=== PATIENT | female | born 1960 | race Caucasian/White ===

== ENCOUNTER 2016-05-18 17:18 | Emergency (ER) | payer BC, MEDICAID ==
[~2016-05-18] VITALS: Ht 162.6 cm; Wt 118.2 kg
[2016-05-18 17:23] VITALS: Ht 162.6 cm; Wt 118.2 kg
--- NOTE | 2016-05-18 17:33 | NUR ---
MAIRA BURKS IN
[2016-05-18] MEDS ORDERED: NORMAL SALINE 1,000 ML IV ONE (17:45)
[2016-05-18 17:58] LABS: BASOPHILS % (AUTO) 0.5 % (0-2); EOSINOPHILS # (AUTO) 0.3 T/MM3 (0-0.5); EOSINOPHILS % (AUTO) 3.1 % (0-4); HCT - HEMATOCRIT 41.1 % (36-46); HGB - HEMOGLOBIN 13.4 GM/DL (12-16); IMMATURE GRANULOCYTE # (AUTO) 0.02 T/MM3 (0.00-0.03); IMMATURE GRANULOCYTE % (AUTO) 0.2 % (0.0-0.5); LYMPHOCYTES # (AUTO) 3.2 T/MM3 (1-4.8); LYMPHOCYTES % (AUTO) 38.2 % (23-45); MEAN CORPUSCULAR HGB 26.9 UUG (26-34); MEAN CORPUSCULAR HGB CONC(MCHC 32.6 GM/DL (31-37); MEAN CORPUSCULAR VOLUME 82.5 UM3 (80-100); MONOCYTES # (AUTO) 0.8 T/MM3 (0-0.8); MONOCYTES % (AUTO) 9.2 % (0-9.0); NEUTROPHILS #(AUTO)-ABSOLUTE 4.1 T/MM3 (1.8-7.7); NEUTROPHILS % (AUTO) 48.8 % (33-66); RED BLOOD COUNT 4.98 M/MM3 (4.00-5.20); WBC - WHITE BLOOD COUNT 8.4 T/MM3 (4.5-11.0)
[2016-05-18 18:00] LABS: BLOOD, URINE TRACE-INTACT (NEGATIVE); COLOR,URINE YELLOW (YELLOW); LEUKOCYTE ESTERASE ,URINE 2+ (NEGATIVE); NITRITE,URINE POSITIVE (NEGATIVE); UROBILINOGEN,URINE 0.2 EU/DL (NORMAL)
[2016-05-18] MEDS ORDERED: [UNRECOGNIZED DRUG - CODE] PO (18:07)
[2016-05-18] MEDS ORDERED: METO25TA6 PO (18:07)
[2016-05-18] MEDS ORDERED: LETR2.5T PO (18:07)
[2016-05-18] MEDS ORDERED: CALC1TAB PEG (18:07)
[2016-05-18] MEDS ORDERED: SENN8.6T12 PO (18:07)
[2016-05-18] MEDS ORDERED: DULO30CA52 PO (18:07)
[2016-05-18] MEDS ORDERED: FLUT15.88 NS (18:07)
[2016-05-18] MEDS ORDERED: DICL100G5 TOP (18:07)
[2016-05-18] MEDS ORDERED: MONT10TA25 PO (18:07)
[2016-05-18] MEDS ORDERED: ALEN70TA48 PO (18:07)
[2016-05-18] MEDS ORDERED: GUAI-782 PO (18:07)
[2016-05-18] MEDS ORDERED: DOCU-175 PO (18:07)
[2016-05-18] MEDS ORDERED: GUAI400T65 PO (18:07)
[2016-05-18] MEDS ORDERED: HYDR50CA5 PO (18:07)
[2016-05-18] MEDS ORDERED: PRAM1TAB3 PO (18:07)
[2016-05-18] MEDS ORDERED: BUDE10.2 PO (18:07)
[2016-05-18] MEDS ORDERED: GLUC1TAB21 PO (18:07)
[2016-05-18] MEDS ORDERED: POTA-81 PO (18:07)
[2016-05-18] MEDS ORDERED: MAGN400T6 PO (18:07)
[2016-05-18] MEDS ORDERED: SITA50TA PO (18:07)
[2016-05-18] MEDS ORDERED: QUET25TA73 PO (18:07)
[2016-05-18] MEDS ORDERED: MELA5TAB14 PO (18:07)
[2016-05-18] MEDS ORDERED: SUCR1TAB PO (18:07)
[2016-05-18] MEDS ORDERED: ALBU8.5H INH (18:07)
[2016-05-18] MEDS ORDERED: GABA-338 PO ×2 (18:07)
[2016-05-18] MEDS ORDERED: BUSP10TA3 PO (18:07)
[2016-05-18] MEDS ORDERED: OMEP20CA10 PO (18:07)
[2016-05-18] MEDS ORDERED: TRAZ-173 PO (18:07)
[2016-05-18 18:09] LABS: ANION GAP 14 MEQ/L (5-15); BUN/CREATININE RATIO 26 RATIO (6-26); CALCIUM 9.7 MG/DL (8.4-10.2); CHLORIDE 110 MEQ/L (98-107); CO2 - CARBON DIOXIDE 27 MEQ/L (22-30); CREATININE 0.9 MG/DL (0.7-1.2); GLOMERULAR FILTRATION RATE 65; GLUCOSE 95 MG/DL (65-110); POTASSIUM 4.1 MEQ/L (3.6-5); SODIUM 151 MEQ/L (134-144)
[2016-05-18 18:11] LABS: SQUAMOUS EPITHELIAL CELL,UR 0-5
[2016-05-18 18:12] LABS: RBC,URINE NONE SEEN /HPF (0-3); WBC CLUMPS,URINE MODERATE
[2016-05-18 18:13] LABS: BACTERIA,URINE 2+ (NEGATIVE)
[2016-05-18] MEDS ORDERED: CEFTRIAXONE I.V. (ER USE ONLY) 1 G in NORMAL SALINE 100 ML IV ONE (18:15)
[2016-05-18] MEDS ORDERED: PHEN-778 PO (18:24)
[2016-05-18] MEDS ORDERED: CIPR-212 PO (18:24)
--- NOTE | 2016-05-18 18:24 | ERPDOC ---
Departure Disposition Decision Date: May 18, 2016 Disposition Decision Time: 18:21 Disposition: 01 DISCHARGED HOME, SELF-CARE Impression Impression Impression: Primary Impression: Urinary tract infection Urinary tract infection type: acute cystitis Hematuria presence: without hematuria Qualified Codes: N30.00 - Acute cystitis without hematuria Severity: Moderate Condition: Stable Seen By: Mid-level only Patient Instructions: Urinary Tract Infection in Women (ED) Problems/Meds/Labs Reviewed?: Yes Medications reviewed and manag: Yes Additional Instructions: Please take the Keflex as prescribed. I do want you to make sure that you are drinking plenty of fluids at home. May use the Pyridium as needed for bladder pain. If you are not improving at all then please follow up with your primary care provider or return to ER. Follow up care ordered?: Yes Mental Status: Alert, Oriented Scripts Cephalexin (Keflex) 500 Mg Capsule 1 CAP PO TID, #21 CAP 0 Refills Prov: JOVANNI COPELAND LEGAL INTERN 05/18/16 Phenazopyridine HCl (Pyridium) 100 Mg Tablet 95 MG PO TID Y for URINARY DISCOMFORT, #9 TAB 0 Refills Prov: JOVANNI COPELAND LEGAL INTERN 05/18/16 HPI - Female General Chief Complaint: Female Urogenital Problems Stated Complaint: POSSIBLE BLADDER INFECTION Time Seen by Provider: 17:22 Source: patient Exam Limitations: no limitations HPI - Female Initial Comments She has had some low abdominal pain and flank pain for the last 5 days. She thinks that she may have a UTI. Has had some dysuria and frequency. Denies any vomiting or fever. Went to her PCP today and they checked her urine. Does show a UTI but they were unsure if she had a pyelo so sent her to ER for evaluation. Occurred At: home Onset: Gradual Duration: other (Over the last 5 days) Severity/Quality: dullness Location: right flank, left flank Radiation: none Associated Symptoms: abdominal pain (low abdominal pain), dysuria, lower back pain, polyuria, urinary frequency, DENIES: diaphoresis, fever/chills, loss of bladder control, lumps, mass, nausea/vomiting, nocturia, swelling, syncope Hx of Similar Symptoms: No Hx Last Menstrual Period: MENOPAUSAL Allergies: Coded Allergies: Penicillins (Verified Allergy, Unknown, 05/18/16) ciprofloxacin (Verified Adverse Reaction, Unknown, STOMACH ACHE, 05/18/16) Review of Systems Constitutional Constitutional: DENIES: chills, dizziness, fatigue, fever, weakness Cardiovascular Cardiac: DENIES: chest pain, orthopnea Rhythm/Rate: DENIES: irregular beat, palpitations Pulmonary Respiratory: DENIES: cough, dyspnea, sputum, tachypnea GI Upper Abdomen: DENIES: nausea, pain, vomiting Lower Abdomen: pain, DENIES: constipation, diarrhea General: DENIES: dysuria, frequency, hematuria, urgency Integumentary Skin: DENIES: rash Neurological General: DENIES: headache, numbness, tingling, weakness Physical Exam General General Nourishment: well nourished, well developed, appears stated age, no acute distress, adult, obese General Body Habitus: well groomed Vitals and Pain First Documented Vital Signs Date Time Temp Pulse Resp B/P Pulse Ox O2 Delivery O2 Flow Rate FiO2 05/18/16 17:23 98.7 94 16 137/83 95 Room Air Weight: Kilograms: 118.200 Height (feet): 5 Height (inches): 4.00 Triage Pain Scale: RN VS reviewed by Provider: Yes Normal Exams: Neck: Full range of motion, without adenopathy, JVD, bruits or thyromegaly Chest/Resp: Clear all goins, with good airflow, and symmetry bilaterally CV: Regular rate and rhythm, without murmur or gallop, Pulses 2+ all extremities, capillary refill, <2 seconds all ext., no pedal edema noted Abdomen: Bowel sounds positive, soft, non-tender, non-distended, no hepatosplenomegaly, masses or bruits noted Lymphatic: No lymphadenopathy, or lymphedema noted Integumentary: No rashes, hives, or bruising noted Neurologic: Patient is alert, and oriented Psychiatric: Patient exhibits, appropriate attention, emotion and affect Abdomen (brief) Abdominal Brief: FOUND: other (No CVA tenderness on exam) Differential Diagnoses Considering: Pyelonephritis, Renal Colic, UTI Progress Results/Orders Orders Procedure Category Date Status Time Cbc W/Auto LAB 05/18/16 Complete Diff-Reflex Manual Bmp - Basic Metabolic LAB 05/18/16 Complete Panel Iv Lock (Ed Only) EDM 05/18/16 Transmitted 17:35 Normal Saline (Normal PHA 05/18/16 Complete Saline Iv) 17:45 UA, LAB 05/18/16 Complete Dip&Micro(Complete) & 17:48 Ceftriaxone I.V. (Er PHA 05/18/16 Complete Use Only) (Rocephin 18:15 Urine Culture VERONICA 05/18/16 In Process 18:13 Phenazopyridine Hcl PHA 05/18/16 Complete (Pyridium Eq.) 18:30 Lab Results Laboratory Tests Test 05/18/16 17:48 05/18/16 17:51 Urine Collection Type Cleancatch-midstream Urine Color Yellow Urine Turbidity Sl cloudy Urine pH 5.0 Urine Specific [place] <=1.005 Urine Protein Negative Urine Glucose (UA) Negative Urine Ketones Negative Urine Blood Trace-intact Urine Nitrite Positive Urine Bilirubin Negative Urine Urobilinogen 0.2EU/DL Urine Leukocyte Esterase 2+ Urine RBC None seen/HPF Urine WBC 5-10/HPF Urine WBC Clumps Moderate Urine Squamous Epithelial Cells 0-5 Urine Bacteria 2+ Urine Culture Indicated Cult reflexed &setup White Blood Count 8.4T/MM3 Red Blood Count 4.98M/MM3 Hemoglobin 13.4GM/DL Hematocrit 41.1% Mean Corpuscular Volume 82.5UM3 Mean Corpuscular Hemoglobin 26.9UUG Mean Corpuscular Hemoglobin Concent 32.6GM/DL RDW Standard Deviation 49.3FL Platelet Count 205T/MM3 Mean Platelet Volume 10.0UM3 Immature Granulocyte % (Auto) 0.2% Neutrophils (%) (Auto) 48.8% Lymphocytes (%) (Auto) 38.2% Monocytes (%) (Auto) 9.2% Eosinophils (%) (Auto) 3.1% Basophils (%) (Auto) 0.5% Absolute Immature Granulocyte (auto 0.02T/MM3 Absolute Neutrophils (auto) 4.1T/MM3 Absolute Lymphocytes (auto) 3.2T/MM3 Absolute Monocytes (auto) 0.8T/MM3 Absolute Eosinophils (auto) 0.3T/MM3 Absolute Basophils (auto) 0.0T/MM3 Turbidity < 20 Sodium Level 151MEQ/L Potassium Level 4.1MEQ/L Chloride Level 110MEQ/L Carbon Dioxide Level 27MEQ/L Anion Gap 14MEQ/L Blood Urea Nitrogen 23.0MG/DL Creatinine 0.9MG/DL Glomerular Filtration Rate Calc 65 BUN/Creatinine Ratio 26RATIO Glucose Level 95MG/DL Calculated Osmolality 294MOSM/KG Calcium Level 9.7MG/DL Icterus Index < 2 Chemistry Specimen Hemolysis < 15 Medications Current ED Medications Sodium Chloride 1,000 ml @ 500 mls/hr Q2H ONCE IV Last administered on 17:55; Start 05/18/16 at 17:45; Stop 05/18/16 at 19:44; Status DC Ceftriaxone Sodium/Sodium Chloride (Rocephin/NS) 100 ml @ 100 mls/hr O ONCE IV Last administered on 05/18/16 18:15; Start 05/18/16 at 18:15; Stop 05/18/16 at 19:14; Status DC Phenazopyridine HCl (Pyridium Eq.) 95 mg O ONCE PO Last administered on 18:38; Start 05/18/16 at 18:30; Stop 05/18/16 at 18:31; Status DC Progress Progress WBC is 8.4 without left shift. Na is 151. UA does show nitrite positive, LE-2+, WBC-5-10, WBC clumps-moderate, and Bacteria-2+. We did give 1 gram Rocephin IV here in ER as well as 1 liter of IVF. Will go ahead and send her home as she is not having any nausea/vomiting or leukocytosis. Will start on some Keflex today. Push fluids at home. F/U with PCP if not improving. JOVANNI COPELAND APRN May 18, 2016 18:24
[2016-05-18] MEDS ORDERED: PHENAZOPYRIDINE 95 MG TABLET PO ONE (18:30)
[2016-05-18] MEDS ORDERED: CEPH-583 PO (19:43)
[2016-05-18 19:45] VITALS: BP 130/79; PULSE 87; RESP 16; TEMP 98.7; O2SAT 95
== END 2016-05-18 19:45 | disposition home or self-care (01) ==
LOC: ED 17:18
DX: N30.00 Acute cystitis without hematuria (principal)
CPT/HCPCS: 80048; 81001; 85025; 87086; 96361; 96365; 99284; J0696; J7030; J7050

== ENCOUNTER 2016-05-21 05:54 | Emergency (ER) | payer BC, MEDICAID ==
[~2016-05-21] VITALS: Ht 162.6 cm; Wt 119.1 kg
[~2016-05-21 05:54] MED LIST: ALBU8.5H INH; ALEN70TA48 PO; BUDE10.2 PO; BUSP10TA3 PO; CALC1TAB PEG; CEPH-583 PO; DICL100G5 TOP; DOCU-175 PO; DULO30CA52 PO; FLUT15.88 NS; GABA-338 PO; GLUC1TAB21 PO; GUAI-782 PO; GUAI400T65 PO; HYDR50CA5 PO; LETR2.5T PO; MAGN400T6 PO; MELA5TAB14 PO; METO25TA6 PO; MONT10TA25 PO; OMEP20CA10 PO; PHEN-778 PO; POTA-81 PO; PRAM1TAB3 PO; QUET25TA73 PO; SENN8.6T12 PO; SITA50TA PO; SUCR1TAB PO; TRAZ-173 PO; [UNRECOGNIZED DRUG - CODE] PO
--- OUTSIDE RECORDS SUMMARY | 2016-05-21 05:58 | XMS REPORT | Continuity of Care Document ---
Author Author [facility] Organization [facility] Address Unknown Phone Unavailable Care Team Providers Care Tableman Name Role Phone Ilya Felix Primary Care Physician [phone] Source Comments Some departments are not documenting in the electronic medical record. If you do not see the information that you expected, contact Release of Information in the Health Information Management department at [phone] for further assistance in locating additional records.[facility] Active Allergies and Adverse Reactions Allergen Noted Date Severity Reactions Comments Amoxicillin 10/17/2015 Low UNKNOWN Augmentin 07/22/2008 UNKNOWN Haldol 07/22/2008 SEE COMMENTS "causes jaw to lock" Latuda 12/23/2015 Low ANXIETY [place] Carbonate 10/17/2015 Low UNKNOWN Penicillins 12/03/2015 Low UNKNOWN Seroquel 10/17/2015 Low UNKNOWN Current Medications Prescription Sig. Disp. Refills Start End Date Status Date potassium chloride SR Take 1 Tab by mouth three Active (K-DUR) 20 mEq tablet times daily. trazodone (DESYREL) 100 Take 250 mg by mouth at Active mg tablet bedtime daily. montelukast (SINGULAIR) Take 10 mg by mouth Active 10 mg tablet daily. letrozole (FEMARA) 2.5 mg Take 2.5 mg by mouth Active tablet daily. melatonin 10 mg cap Take 1 Cap by mouth at Active bedtime daily. Mometasone-Formoterol Inhale 2 Puffs by mouth Active 100-5 mcg/actuation HFAA into the lungs twice daily. albuterol (VENTOLIN HFA, Inhale 2 Puffs by mouth Active PROAIR HFA, PROVENTIL into the lungs every 4 HFA) 90 mcg/actuation hours as needed for inhaler Wheezing or Shortness of Breath. Shake well before use. erythromycin (E-MYCIN) Take 250 mg by mouth four Active 250 mg tablet times daily. fluticasone (FLONASE) 50 Apply 2 Sprays to each Active mcg/actuation nasal spray nostril as directed at bedtime daily. Shake bottle gently before using. sodium chloride (SALINE Apply 2 Sprays to each Active NASAL) 0.65 % nasal spray nostril as directed twice daily as needed. vitamins, B complex tab Take 1 Tab by mouth Active daily. Calcium-Cholecalciferol Take 1 Tab by mouth Active (D3) (CALCIUM WITH daily. VITAMIN D) 600 mg(1,500mg) -400 unit tab docusate (COLACE) 100 mg Take 100 mg by mouth Active capsule twice daily. promethazine (PHENERGAN) Take 25 mg by mouth every Active 25 mg tablet 6 hours as needed for Nausea. inulin-sorbitol (FIBER Chew 1 Each by mouth Active CHOICE (INULIN-SORBITOL)) daily. 1.5 gram chew gabapentin (NEURONTIN) Take 1 (300mg) capsule by Active 300 mg capsule mouth twice a day and 4 (1200mg) capsules at bedtime. hydrOXYzine (ATARAX) 25 Take 25-50 mg by mouth Active mg tablet daily. sucralfate (CARAFATE) 1 Take 1 g by mouth three Active gram tablet times daily with meals. Take on an empty stomach. omeprazole DR(+) Take 20 mg by mouth Active (PRILOSEC) 20 mg capsule daily. hydrOXYzine (ATARAX) 50 Take 50 mg by mouth three Active mg tablet times daily as needed for Itching. alum/mag hydroxide/simeth Take 30 mL by mouth every Active (MYLANTA, MAALOX PLUS) 4 hours as needed. 200/200/20 mg/5 mL susp oral suspension magnesium hydroxide (MILK Take 30 mL by mouth every Active OF MAGNESIA) 400 mg/5 mL 12 hours as needed. oral suspension ibuprofen (ADVIL) 200 mg Take 200-400 mg by mouth Active tablet as Needed for Pain. Take with food. polyethylene glycol 3350 Take 17 g by mouth twice Active (GLYCOLAX; MIRALAX) 17 daily as needed for gram/dose powder Constipation. diclofenac(+) (VOLTAREN) Apply topically to Active 1 % topical gel affected area twice daily as needed. Apply a "thin film" metoprolol tartrate Take 12.5 mg by mouth Active (LOPRESSOR) 25 mg tablet daily. dextromethorphan/guaiFENe Take 10 mL by mouth every Active sin (ROBITUSSIN-DM) 4 hours as needed. 10/100 mg/5 mL syrp oral syrup guaiFENesin LA (MUCINEX) Take 600 mg by mouth Active 600 mg tablet twice daily as needed. duloxetine DR (CYMBALTA) Take 30 mg by mouth Active 30 mg capsule daily. lurasidone 40 mg tab Take 1.5 Tabs by mouth Active daily. busPIRone (BUSPAR) 10 mg Take 10 mg by mouth twice Active tablet daily. buPROPion XL (WELLBUTRIN Take 150 mg by mouth Active XL) 150 mg tablet every morning. Do not crush or chew. acetaminophen (TYLENOL) Take 2 Tabs by mouth 0 12/05/19 Active 325 mg tablet every 4 hours as needed 16 for Pain. heparin (porcine) PF Inject 0.5 mL under the 12/05/19 Active 5,000units/0.5mL skin every 8 hours. June 29 injection syringe discontinue once mobilizing well senna/docusate Take 1 Tab by mouth twice 0 12/05/19 Active (SENOKOT-S) 8.6/50 mg daily. Take while taking 16 tablet pain medication HYDROcodone/acetaminophen Take 1-2 Tabs by mouth 75 Tab 0 12/05/19 Active (NORCO) 5-325 mg tablet every 4 hours as needed 16 for Pain Active Problems Problem Noted Date Lumbar stenosis 12/03/2015 Spinal stenosis 08/02/2008 Most Recent Encounters Date Type Specialty Providers Description 04/13/2016 Office Visit Neurosurgery Milan Perez MD Lumbar stenosis (Primary Dx) 04/07/2016 Telephone Neurosurgery Milan Perez MD Referral - physical therapy 03/09/2016 Telephone Neurosurgery Milan Perez MD Referral 03/09/2016 Orders Only Neurosurgery Milan Perez MD Social History Tobacco Use Types Packs/Day Years Used Date Never Smoker Smokeless Tobacco: Never Used Alcohol Use Drinks/Week oz/Week Comments No Last Filed Vital Signs Vital Sign Reading Time Taken Blood Pressure 180/85 04/13/2016 1:43 PM [employer] SU[employer] WORKER Pulse 101 04/13/2016 1:43 PM [employer] SUPPORT WORKER Temperature 36.9 C (98.5 F) 12/23/2015 1:05 PM [employer] SUPPORT WORKER Respiratory Rate 20 04/13/2016 1:43 PM [employer] SUPPORT WORKER Height 1.626 m (5' 4") 04/13/2016 1:43 PM [employer]U SUPPORT WORKER Weight 121.11 kg (267 lb) 04/13/2016 1:43 PM [employer] SUPPORT WORKER Body Mass Index 45.81 04/13/2016 1:43 PM [employer] SU[employer] WORKER Oxygen Saturation 94% 04/13/2016 1:43 PM [employer] SUPPORT WORKER Plan of Care Health Maintenance Due Date Last Done Comments Hepatitis C Screening 1960 Physical (Comprehensive) 1965 Exam Pertussis Vaccine 1969 Tetanus Vaccine 08/16/1975 Cervical Cancer Screening 08/16/1979 Breast Cancer Screening 1998 Colorectal Cancer 2008 Screening Influenza Vaccine 10/15/2016 Results from Last 3 Months Not on file
[2016-05-21 06:02] VITALS: Ht 162.6 cm; Wt 119.1 kg
--- OUTSIDE RECORDS SUMMARY | 2016-05-21 06:19 | XMS REPORT | Continuity of Care Document ---
Author Author [facility] Organization [facility] Address Unknown Phone Unavailable Care Team Providers Care Cleaning Manager Name Role Phone Ilya Felix Primary Care Physician [phone] Source Comments Some departments are not documenting in the electronic medical record. 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 Pulse 101 04/13/2016 1:43 PM RETAIL TRAINING MANAGER Temperature 36.9 C (98.5 F) 12/23/2015 1:05 PM RETAIL TRAINING MANAGER Respiratory Rate 20 04/13/2016 1:43 PM RETAIL TRAINING MANAGER Height 1.626 m (5' 4") 04/13/2016 1:43 PM RETAIL TRAINING MANAGER Weight 121.11 kg (267 lb) 04/13/2016 1:43 PM RETAIL TRAINING MANAGER Body Mass Index 45.81 04/13/2016 1:43 PM RETAIL TRAINING MANAGER Oxygen Saturation 94% 04/13/2016 1:43 PM RETAIL TRAINING MANAGER Plan of Care Health Maintenance Due Date Last Done Comments Hepatitis C Screening 1960 Physical (Comprehensive) 1965 Exam Pertussis Vaccine 1969 Tetanus Vaccine 08/16/1975 Cervical Cancer Screening 08/16/1979 Breast Cancer Screening 1998 Colorectal Cancer 2008 Screening Influenza Vaccine 10/15/2016 Results from Last 3 Months Not on file
--- NOTE | 2016-05-21 06:28 | NUR ---
EKG EKG TAKEN AND GIVEN TO DR VILLAVICENCIO
[2016-05-21 06:42] LABS: BASOPHILS % (AUTO) 0.8 % (0-2); EOSINOPHILS # (AUTO) 0.2 T/MM3 (0-0.5); EOSINOPHILS % (AUTO) 3.9 % (0-4); HCT - HEMATOCRIT 40.7 % (36-46); HGB - HEMOGLOBIN 13.2 GM/DL (12-16); IMMATURE GRANULOCYTE # (AUTO) 0.01 T/MM3 (0.00-0.03); IMMATURE GRANULOCYTE % (AUTO) 0.2 % (0.0-0.5); LYMPHOCYTES # (AUTO) 1.9 T/MM3 (1-4.8); LYMPHOCYTES % (AUTO) 36.3 % (23-45); MEAN CORPUSCULAR HGB 26.8 UUG (26-34); MEAN CORPUSCULAR HGB CONC(MCHC 32.4 GM/DL (31-37); MEAN CORPUSCULAR VOLUME 82.7 UM3 (80-100); MEAN PLATELET VOLUME 9.4 UM3 (9.4-12.4); MONOCYTES # (AUTO) 0.6 T/MM3 (0-0.8); MONOCYTES % (AUTO) 11.1 % (0-9.0); NEUTROPHILS #(AUTO)-ABSOLUTE 2.4 T/MM3 (1.8-7.7); NEUTROPHILS % (AUTO) 47.7 % (33-66); RED BLOOD COUNT 4.92 M/MM3 (4.00-5.20); WBC - WHITE BLOOD COUNT 5.1 T/MM3 (4.5-11.0)
[2016-05-21 06:50] LABS: ALBUMIN 3.9 G/DL (3.5-5.0); ALBUMIN/GLOBULIN RATIO 1.1 RATIO (1.1-2.2); ALKALINE PHOSPHATASE 92 U/L (38-126); ALT (SGPT) 42 U/L (9-52); ANION GAP 11 MEQ/L (5-15); AST (SGOT) 25 U/L (14-36); BUN/CREATININE RATIO 17 RATIO (6-26); CALCIUM 9.7 MG/DL (8.4-10.2); CHLORIDE 110 MEQ/L (98-107); CO2 - CARBON DIOXIDE 28 MEQ/L (22-30); CREATININE 0.9 MG/DL (0.7-1.2); GLOMERULAR FILTRATION RATE 65; GLUCOSE 104 MG/DL (65-110); LIPASE 254 U/L (23-300); POTASSIUM 3.7 MEQ/L (3.6-5); SODIUM 149 MEQ/L (134-144); TOTAL PROTEIN 7.4 G/DL (6.3-8.2)
[2016-05-21 06:57] LABS: BLOOD, URINE NEGATIVE (NEGATIVE); COLOR,URINE YELLOW (YELLOW); LEUKOCYTE ESTERASE ,URINE NEGATIVE (NEGATIVE); NITRITE,URINE NEGATIVE (NEGATIVE); UROBILINOGEN,URINE 0.2 EU/DL (NORMAL)
--- NOTE | 2016-05-21 07:01 | NUR ---
RADIOLOGY PT TO RADIOLOGY PER CART
--- NOTE | 2016-05-21 07:09 | ERPDOC ---
Departure Disposition Decision Date: May 21, 2016 Disposition Decision Time: 07:51 Disposition: 01 DISCHARGED HOME, SELF-CARE Impression Impression Impression: Primary Impression: UTI (urinary tract infection) Urinary tract infection type: acute cystitis Hematuria presence: without hematuria Qualified Codes: N30.00 - Acute cystitis without hematuria Additional Impression: Rib fracture Encounter type: initial encounter Rib fracture type: single rib Fracture type: closed Laterality: left Qualified Codes: S22.32XA - Fracture of one rib, left side, initial encounter for closed fracture Severity: Mild Condition: Improved Seen By: Physician only Referrals: BOBBI DOW MD (Family) 2 Days Patient Instructions: Urinary Tract Infection in Women (ED) Problems/Meds/Labs Reviewed?: Yes Medications reviewed and manag: Yes Follow up care ordered?: Yes Mental Status: Alert, Oriented HPI - General Medical General Chief Complaint: Female Urogenital Problems Stated Complaint: BLOOD IN URINE Time Seen by Provider: 06:11 Source: patient Exam Limitations: no limitations HPI - General Medical Initial Comments 55-year-old female presents to the emergency department with a chief complaint of a urinary tract infection. Patient was started originally on Keflex in the emergency department after being seen and evaluated on Tuesday. Yesterday they the patient was changed from Keflex to Macrobid by her primary care physician after the urine culture returned. Patient has had one full day of Macrobid therapy. Patient still notes some mild residual discomfort in the left flank region. Patient denies any other complaints or associated symptoms. She notes that her symptoms are improving with the Macrobid. She was at home when she noted onset of symptoms. No other complaints or associated symptoms. Patient states that her symptoms have been persistent in nature since onset with some improvement. No other complaints such as chest pain, shortness of breath, vomiting or diarrhea. Occurred At: home Onset: Gradual Allergies: Coded Allergies: Penicillins (Verified Allergy, Unknown, 05/21/16) ciprofloxacin (Verified Adverse Reaction, Unknown, STOMACH ACHE, 05/21/16) Past History Patient Surgical History L Breast surgery, hysterectomy, bunion Past Medical History GI: GERD Female: renal insufficiency Psychological: depression Family History Family History: Negative Social History Smoking Status: Current every day smoker Substance Use Type: does not use Alcohol Intake: none Review of Systems Constitutional Constitutional: DENIES: chills, fever Eyes General: DENIES: erythema, exudate Lids/Accessories: DENIES: erythema, swelling Vision: DENIES: acuity, blurring ENMT Ears: DENIES: drainage, erythema Hearing: DENIES: hearing loss Balance: DENIES: ataxia, falling to one side Sinuses: DENIES: congestion, pain Nose: DENIES: nosebleeds, pain Mouth/Throat: DENIES: painful swallowing, sore throat Teeth: DENIES: pain Jaw: DENIES: pain Cardiovascular Cardiac: DENIES: chest pain, dyspnea on exertion Rhythm/Rate: DENIES: irregular beat, palpitations Vascular: DENIES: pedal edema, unilateral swelling Pulmonary Respiratory: DENIES: cough, dyspnea, pleuritic chest pain, sputum GI Upper Abdomen: DENIES: nausea, pain, vomiting Lower Abdomen: DENIES: diarrhea, pain General: dysuria, frequency Musculoskeletal General: DENIES: joint pain, tenderness Integumentary Skin: DENIES: itching, rash Neurological General: DENIES: headache, numbness, weakness Psychiatric Psychiatric: DENIES: emotional instability, suicidal ideation/attempt Endocrine Endocrine: DENIES: polydipsia, polyphagia Hematologic/Lymphatic Hematologic/Lymphatic: DENIES: frequent nosebleeds, lymphadenopathy Allergic/Immunological Allergic/Immunoligical: DENIES: allergic reactions, hives Physical Exam General General Nourishment: well nourished, well developed, appears stated age, no acute distress, adult General Body Habitus: well groomed Vitals and Pain First Documented Vital Signs Date Time Temp Pulse Resp B/P Pulse Ox O2 Delivery O2 Flow Rate FiO2 05/21/16 06:02 98.3 83 20 163/92 95 Room Air Weight: Kilograms: 119.100 Height (feet): 5 Height (inches): 4.00 Triage Pain Scale: RN VS reviewed by Provider: Yes Normal Exams: Head: Normocephalic w/o trauma Eyes: Pupils are PERRLA w/ EOMI, No scleral icterus, irritation, or foreign bodies noted ENMT: No facial trauma, nasal exudates, pharyngeal erythema, or exudates are noted Dental: No fractured, loose, or missing teeth noted Neck: Full range of motion, without adenopathy, JVD, bruits or thyromegaly Chest/Resp: Clear all goins, with good airflow, and symmetry bilaterally CV: Regular rate and rhythm, without murmur or gallop, Pulses 2+ all extremities, capillary refill, <2 seconds all ext., no pedal edema noted Abdomen: Bowel sounds positive, soft, non-tender, non-distended, no hepatosplenomegaly, masses or bruits noted Lymphatic: No lymphadenopathy, or lymphedema noted Musculoskeletal: No tenderness, or deformity noted, good range of motion, all extremities Integumentary: No rashes, hives, or bruising noted, hair and nails, without abnormality Neurologic: Patient is alert, and oriented, cranial nerves, motor/sensory/ cerebellar, exams w/o gross deficits, to observation Psychiatric: Patient exhibits, appropriate attention, emotion and affect Abdomen (brief) Comments NO CVAT. Differential Diagnoses Considering: Depression, Medication Effect, Metabolic, UTI Progress Results/Orders Orders Procedure Category Date Status Time Cbc W/Auto LAB 05/21/16 Complete Diff-Reflex Manual Cmp - Comprehensive LAB 05/21/16 Complete Metabolic Lipase LAB 05/21/16 Complete Ua, Dip Wreflex LAB 05/21/16 Complete Microsc & Molded Goods Controls Operator 06:20 EKG EKG 05/21/[address] Renal W/O Contrast CT 05/21/16 Taken 06:20 Incentive Spirometry RT 05/21/16 Logged Manage Incentive CHERYL 05/21/16 In Process Spirometer 16:00 Acetaminophen PHA 05/21/16 Complete (Tylenol Extra 08:00 Lab Results Laboratory Tests Test 05/21/16 06:36 05/21/16 06:48 White Blood Count 5.1T/MM3 Red Blood Count 4.92M/MM3 Hemoglobin 13.2GM/DL Hematocrit 40.7% Mean Corpuscular Volume 82.7UM3 Mean Corpuscular Hemoglobin 26.8UUG Mean Corpuscular Hemoglobin Concent 32.4GM/DL RDW Standard Deviation 48.3FL Platelet Count 187T/MM3 Mean Platelet Volume 9.4UM3 Immature Granulocyte % (Auto) 0.2% Neutrophils (%) (Auto) 47.7% Lymphocytes (%) (Auto) 36.3% Monocytes (%) (Auto) 11.1% Eosinophils (%) (Auto) 3.9% Basophils (%) (Auto) 0.8% Absolute Immature Granulocyte (auto 0.01T/MM3 Absolute Neutrophils (auto) 2.4T/MM3 Absolute Lymphocytes (auto) 1.9T/MM3 Absolute Monocytes (auto) 0.6T/MM3 Absolute Eosinophils (auto) 0.2T/MM3 Absolute Basophils (auto) 0.0T/MM3 Turbidity < 20 Sodium Level 149MEQ/L Potassium Level 3.7MEQ/L Chloride Level 110MEQ/L Carbon Dioxide Level 28MEQ/L Anion Gap 11MEQ/L Blood Urea Nitrogen 15.0MG/DL Creatinine 0.9MG/DL Glomerular Filtration Rate Calc 65 BUN/Creatinine Ratio 17RATIO Glucose Level 104MG/DL Calculated Osmolality 287MOSM/KG Calcium Level 9.7MG/DL Total Bilirubin 0.60MG/DL Icterus Index < 2 Aspartate Amino Transf (AST/SGOT) 25U/L Alanine Aminotransferase (ALT/SGPT) 42U/L Alkaline Phosphatase 92U/L Total Protein 7.4G/DL Albumin 3.9G/DL Globulin 3.5G/DL Albumin/Globulin Ratio 1.1RATIO Lipase 254U/L Chemistry Specimen Hemolysis < 15 Urine Collection Type Cleancatch-midstream Urine Color Yellow Urine Turbidity Clear Urine pH 6.0 Urine Specific [place] <=1.005 Urine Protein Negative Urine Glucose (UA) Negative Urine Ketones Negative Urine Blood Negative Urine Nitrite Negative Urine Bilirubin Negative Urine Urobilinogen 0.2EU/DL Urine Leukocyte Esterase Negative Urinalysis Comment Microscopic not ind. Medications Current ED Medications Acetaminophen (Tylenol Extra Strength) 1,000 mg O ONCE PO Last administered on 05/21/16t 07:55; Start 05/21/16 at 08:00; Stop 05/21/16 at 08:01; Status DC Progress Progress Labs/imaging were discussed in detail with the patient and questions are answered. Patient is given analgesic pain medication with improvement of symptoms in the emergency Department. Patient is provided with an incentive spirometer and instructions for use. Patient's urinalysis is now unremarkable. Patient is instructed to continue using the Macrobid as previously instructed. Patient is to use [id number] analgesic pain medication as needed along with the incentive spirometer. She is discharged home in improved condition. She is to follow up as instructed. She is to return to the emergency Department if her condition worsens or changes in any manner. Patient is in agreement with the current plan of management. She is to follow up as instructed. EKG EKG : Rate: 60-100 Rhythm: sinus QRS: RBBB ST/T: normal Interpreted by: signing physician CT CT : CT: Abd/Pelvis no contrast Interpretation: Abnormal, Reviewed Written Report (no acute processes other than a potential 10th rib fracture on the left.) IDA VILLAVICENCIO DO May 21, 2016 07:09
--- NOTE | 2016-05-21 07:20 | NUR ---
RADIOLOGY PT FROM RADIOLOGY PER CART
--- NOTE | 2016-05-21 07:55 | NUR ---
MEDICATION TYLENOL GIVEN FOR HEADACHE AND LEFT FLANK PAIN
[2016-05-21] MEDS ORDERED: ACETAMINOPHEN 500 MG TABLET PO ONE (08:00)
--- NOTE | 2016-05-21 08:10 | NUR ---
IV IVL DC'D WITH CATH INTACT
[2016-05-21 08:22] VITALS: BP 151/89; PULSE 83; RESP 18; TEMP 98.3; O2SAT 97
--- NOTE | 2016-05-21 08:28 | DI ---
Indication: ITS.REASON: pain L flank PROCEDURE: CT RENAL W/O CONTRAST: Encounter: Initial Comparison: None Technique: Axial CT images were performed through the abdomen and pelvis without intravenous contrast. Coronal and sagittal two-dimensional reformats. Automated Exposure Control and Iterative Reconstruction dose reducing techniques were utilized. Findings: Probable intrapulmonary lymph node along the right major fissure. Minimal atelectasis in the lung bases. The unenhanced contours of the liver are grossly normal. The gallbladder, spleen, pancreas and adrenal glands are within normal limits. Kidneys show extrarenal pelves but no stone disease or true hydronephrosis. No ureteral stones. Bladder is normal. No bowel obstruction. The appendix is normal. Bone windows show degenerative and postoperative changes in the spine. There is an acute appearing fracture of the left 10th posterior rib. There is a subacute to chronic healing fracture of the left 12th posterior rib. Impression: Acute appearing left 10th posterior rib fracture. There is a preliminary report by virtual radiologic. .
== END 2016-05-21 08:22 | disposition home or self-care (01) ==
LOC: ED 05:54
DX: N30.00 Acute cystitis without hematuria (principal); S22.32XA Fracture of one rib, left side, initial encounter for closed fracture; X58.XXXA Exposure to other specified factors, initial encounter; Y93.9 Activity, unspecified; Y92.009 Unspecified place in unspecified non-institutional (private) residence as the place of occurrence of the external cause; Y99.8 Other external cause status
CPT/HCPCS: 80053; 81003; 83690; 85025; 93005

== ENCOUNTER 2016-05-26 23:55 | Emergency (ER) | payer BC, MEDICAID ==
[~2016-05-26] VITALS: Ht 162.6 cm; Wt 111.5 kg
[2016-05-26 23:55] VITALS: TEMP 97.6; Ht 162.6 cm; Wt 111.5 kg
--- OUTSIDE RECORDS SUMMARY | 2016-05-26 23:58 | XMS REPORT | Continuity of Care Document ---
Author Author [facility] Organization [facility] Address Unknown Phone Unavailable Care Team Providers Care Oncologist Name Role Phone Ilya Felix Primary Care Physician [phone] Source Comments Some departments are not documenting in the electronic medical record. If you do not see the information that you expected, contact Release of Information in the Health Information Management department at [phone] for further assistance in locating additional records.[facility] Active Allergies and Adverse Reactions Allergen Noted Date Severity Reactions Comments Amoxicillin 10/17/2015 Low UNKNOWN Augmentin 07/22/2008 UNKNOWN Haldol 07/22/2008 SEE COMMENTS "causes jaw to lock" Latuda 12/23/2015 Low ANXIETY [place] Carbonate 10/17/2015 Low UNKNOWN Penicillins 12/03/2015 Low [...] Taken Blood Pressure 180/85 04/13/2016 1:43 PM MACHINE PACK ASSEMBLER Pulse 101 04/13/2016 1:43 PM MACHINE PACK ASSEMBLER Temperature 36.9 C (98.5 F) 12/23/2015 1:05 PM MACHINE PACK ASSEMBLER Respiratory Rate 20 04/13/2016 1:43 PM MACHINE PACK ASSEMBLER Height 1.626 m (5' 4") 04/13/2016 1:43 PM MACHINE PACK ASSEMBLER Weight 121.11 kg (267 lb) 04/13/2016 1:43 PM MACHINE PACK ASSEMBLER Body Mass Index 45.81 04/13/2016 1:43 PM MACHINE PACK ASSEMBLER Oxygen Saturation 94% 04/13/2016 1:43 PM MACHINE PACK ASSEMBLER Plan of Care Health Maintenance Due Date Last Done Comments Hepatitis C Screening 1960 Physical (Comprehensive) 1965 Exam Pertussis Vaccine 1969 Tetanus Vaccine 08/16/1975 Cervical Cancer Screening 08/16/1979 Breast Cancer Screening 1998 Colorectal Cancer 2008 Screening Influenza Vaccine 10/15/2016 Results from Last 3 Months Not on file
--- OUTSIDE RECORDS SUMMARY | 2016-05-27 00:40 | XMS REPORT | Continuity of Care Document ---
Author Author [facility] Organization [facility] Address Unknown Phone Unavailable Care Team Providers Care Procurement Analyst Name Role Phone Ilya Felix Primary Care Physician [phone] Source Comments Some departments are not documenting in the electronic medical record. If you do not see the information that you expected, contact Release of Information in the Health Information Management department at [phone] for further assistance in locating additional records.[facility] Active Allergies and Adverse Reactions Allergen Noted Date Severity Reactions Comments Amoxicillin 10/17/2015 Low UNKNOWN Augmentin 07/22/2008 UNKNOWN Haldol 07/22/2008 SEE COMMENTS "causes jaw to lock" Latuda 12/23/2015 Low ANXIETY [place] Carbonate 10/17/2015 Low UNKNOWN Penicillins 12/03/2015 Low [...] Taken Blood Pressure 180/85 04/13/2016 1:43 PM FORMING MACHINE TENDER Pulse 101 04/13/2016 1:43 PM FORMING MACHINE TENDER Temperature 36.9 C (98.5 F) 12/23/2015 1:05 PM FORMING MACHINE TENDER Respiratory Rate 20 04/13/2016 1:43 PM FORMING MACHINE TENDER Height 1.626 m (5' 4") 04/13/2016 1:43 PM FORMING MACHINE TENDER Weight 121.11 kg (267 lb) 04/13/2016 1:43 PM FORMING MACHINE TENDER Body Mass Index 45.81 04/13/2016 1:43 PM FORMING MACHINE TENDER Oxygen Saturation 94% 04/13/2016 1:43 PM FORMING MACHINE TENDER Plan of Care Health Maintenance Due Date Last Done Comments Hepatitis C Screening 1960 Physical (Comprehensive) 1965 Exam Pertussis Vaccine 1969 Tetanus Vaccine 08/16/1975 Cervical Cancer Screening 08/16/1979 Breast Cancer Screening 1998 Colorectal Cancer 2008 Screening Influenza Vaccine 10/15/2016 Results from Last 3 Months Not on file
[2016-05-27 01:13] LABS: BASOPHILS % (AUTO) 0.3 % (0-2); EOSINOPHILS # (AUTO) 0.2 T/MM3 (0-0.5); EOSINOPHILS % (AUTO) 3.3 % (0-4); HCT - HEMATOCRIT 41.4 % (36-46); HGB - HEMOGLOBIN 13.4 GM/DL (12-16); IMMATURE GRANULOCYTE # (AUTO) 0.03 T/MM3 (0.00-0.03); IMMATURE GRANULOCYTE % (AUTO) 0.4 % (0.0-0.5); LYMPHOCYTES # (AUTO) 3.1 T/MM3 (1-4.8); MEAN CORPUSCULAR HGB 26.9 UUG (26-34); MEAN CORPUSCULAR HGB CONC(MCHC 32.4 GM/DL (31-37); MEAN CORPUSCULAR VOLUME 83.1 UM3 (80-100); MEAN PLATELET VOLUME 9.6 UM3 (9.4-12.4); MONOCYTES # (AUTO) 0.8 T/MM3 (0-0.8); MONOCYTES % (AUTO) 11.1 % (0-9.0); NEUTROPHILS #(AUTO)-ABSOLUTE 2.8 T/MM3 (1.8-7.7); NEUTROPHILS % (AUTO) 39.9 % (33-66); RED BLOOD COUNT 4.98 M/MM3 (4.00-5.20); WBC - WHITE BLOOD COUNT 6.9 T/MM3 (4.5-11.0)
[2016-05-27 01:19] LABS: BLOOD, URINE NEGATIVE (NEGATIVE); COLOR,URINE YELLOW (YELLOW); LEUKOCYTE ESTERASE ,URINE TRACE (NEGATIVE); NITRITE,URINE NEGATIVE (NEGATIVE); UROBILINOGEN,URINE 0.2 EU/DL (NORMAL)
[2016-05-27 01:23] LABS: AMPHETAMINE SCREEN,URINE NEGATIVE; BARBITURATE SCREEN,URINE NEGATIVE; BENZODIAZEPINES SCREEN,URINE NEGATIVE; CANNABINOID SCREEN,URINE NEGATIVE; COCAINE SCREEN,URINE NEGATIVE; METHADONE SCREEN, URINE NEGATIVE; METHAMPHETAMINE SCREEN, URINE NEGATIVE; OPIATE SCREEN,URINE POSITIVE; PHENCYCLIDINE SCREEN,URINE NEGATIVE; TRICYCLIC ANTIDEPRESSANT,URINE POSITIVE
[2016-05-27 01:24] LABS: ACETAMINOPHEN < 10 UG/ML (10-30); ANION GAP 13 MEQ/L (5-15); BUN/CREATININE RATIO 27 RATIO (6-26); CHLORIDE 110 MEQ/L (98-107); CO2 - CARBON DIOXIDE 29 MEQ/L (22-30); ETHANOL <10 MG/DL (<10); GLOMERULAR FILTRATION RATE 57; GLUCOSE 98 MG/DL (65-110); SALICYLATE < 1.0 MG/DL (2-20); SODIUM 152 MEQ/L (134-144)
[2016-05-27] MEDS ORDERED: FOSFOMYCIN 3 GRAM PACKET PO ONE (01:45)
[2016-05-27] MEDS ORDERED: HYDROCODONE/APAP 5 mg/325 mg TABLET PO ONE (01:45)
--- NOTE | 2016-05-27 01:50 | NUR ---
STATUS PT IS SEATED IN CHAIR IN ROOM INSTEAD OF BED, REPORTS IT IS MORE COMFORTABLE TO HER.
--- NOTE | 2016-05-27 02:03 | ERPDOC ---
Departure Disposition Decision Date: May 27, 2016 Disposition Decision Time: 03:37 Disposition: 65 TO PSYCH HOSP/UNIT Impression Impression Impression: Primary Impression: Suicidal ideation Additional Impression: MDD (major depressive disorder) Major depression recurrence: recurrent Active/Remission status: currently active Major depression episode severity: severe Psychotic features: without psychotic features Qualified Codes: F33.2 - Major depressive disorder , recurrent severe without psychotic features Severity: Severe Condition: Improved Seen By: Physician only Referrals: BOBBI DOW MD (Family) Problems/Meds/Labs Reviewed?: Yes Medications reviewed and manag: Yes Follow up care ordered?: Yes Mental Status: Alert, Oriented HPI - Psychosocial General Chief Complaint: Suicide Ideation/Attempt Stated Complaint: SUICIDAL THOUGHTS Time Seen by MD: 00:17 Source: patient Exam Limitations: no limitations HPI - Psychosocial Initial Comments 55yo woman presents to the ER [facility] with SI. Pt has an extensive psych hx; lives in a senior living at . Pt has had a number of stressors combine to cause her to perseverate about a knife in their senior living. Pt has no intent at this time, but feels that she is close to wanting to kill herself. Pt has never attempted suicide previously. Occurred At: home Onset: Gradual, Getting worse Duration: other Severity: severe Associated Symptoms: anxiety, impaired concentration, suicidal ideation Hx of Similar Symptoms: Yes Allergies: Coded Allergies: Penicillins (Verified Allergy, Unknown, 05/27/16) amoxicillin (Verified Allergy, Unknown, 05/27/16) clavulanic acid (Verified Allergy, Unknown, 05/27/16) grapefruit (Verified Allergy, Unknown, 05/27/16) haloperidol (Verified Allergy, Unknown, 05/27/16) ciprofloxacin (Verified Adverse Reaction, Unknown, STOMACH ACHE, 05/27/16) Uncoded Allergies: POTASSIUM CLAVULANATE (Allergy, Unknown, 05/27/16) Past History Patient Surgical History L Breast surgery, hysterectomy, bunion Past Medical History GI: GERD Female: renal insufficiency Psychological: anxiety, depression, psychosis Social History Substance Use Type: does not use Alcohol Intake: none Review of Systems Musculoskeletal Comments Has left-sided rib pain from fractured ribs. Has not had her pain med for > 2weeks. Has left foot pain. Psychiatric Psychiatric: anxiety, depression, suicidal ideation/attempt All other Systems All Other Systems: Reviewed and Negative Physical Exam General General Nourishment: well nourished, well developed, appears stated age, no acute distress, adult, obese General Body Habitus: disheveled Vitals and Pain First Documented Vital Signs Date Time Temp Pulse Resp B/P Pulse Ox O2 Delivery O2 Flow Rate FiO2 05/26/16 23:55 97.6 108 12 126/70 94 Room Air Weight: Kilograms: Height (feet): 5 Height (inches): 4.00 Triage Pain Scale: RN VS reviewed by Provider: Yes Normal Exams: Head: Normocephalic w/o trauma Eyes: Pupils are PERRLA w/ EOMI, No scleral icterus, irritation ENMT: No facial trauma, nasal exudates, pharyngeal erythema Neck: Full range of motion, without adenopathy, JVD Chest/Resp: Clear all goins, with good airflow, and symmetry bilaterally CV: Regular rate and rhythm, without murmur or gallop, Pulses 2+ all extremities, capillary refill, <2 seconds all ext. Abdomen: Bowel sounds positive, soft, non-tender Lymphatic: No lymphadenopathy Musculoskeletal: No tenderness, or deformity noted Integumentary: No rashes, hives, or bruising noted Neurologic: Patient is alert, and oriented Psychiatric (brief) Psychiatric Brief: FOUND: alert, attentive, oriented, NOT FOUND: normal affect (Labile) Differential Diagnoses Considering: Anxiety, Bipolar, Borderline PD, Delirium, Dementia, Depression, Hallucinations, Other Intoxication, Mya, Acute Psychosis, Suicidal Attempt, Suicidal Gesture, Suicidal Ideation Progress Results/Orders Orders Procedure Category Date Status Time Nothing By Mouth (Ed EDM 05/27/16 Transmitted Only) 00:17 Cbc W/Auto LAB 05/27/16 Complete Diff-Reflex Manual 00:17 Bmp - Basic Metabolic LAB 05/27/16 Complete Panel 00:17 Ethanol LAB 05/27/16 Complete 00:17 Drug Screen LAB 05/27/16 Complete Urine-Test At [facility] [place] 00:17 Acetaminophen LAB 05/27/16 Complete 00:17 Salicylate LAB 05/27/16 Complete 00:17 Ua, Dip Wreflex LAB 05/27/16 Complete Microsc & Garbage Truck Driver 00:17 Tsh - Thyroid Stim LAB 05/27/16 Complete Hormone 00:17 Chest 1 View RAD 05/27/16 Taken 00:17 Hydrocodone/Acetaminophen PHA 05/27/16 Complete ([place] 5/325) 01:45 Fosfomycin PHA 05/27/16 Complete Tromethamine (Monurol) 01:45 Lab Results Laboratory Tests Test 05/27/16 00:52 05/27/16 01:04 White Blood Count 6.9T/MM3 Red Blood Count 4.98M/MM3 Hemoglobin 13.4GM/DL Hematocrit 41.4% Mean Corpuscular Volume 83.1UM3 Mean Corpuscular Hemoglobin 26.9UUG Mean Corpuscular Hemoglobin Concent 32.4GM/DL RDW Standard Deviation 48.4FL Platelet Count 227T/MM3 Mean Platelet Volume 9.6UM3 Immature Granulocyte % (Auto) 0.4% Neutrophils (%) (Auto) 39.9% Lymphocytes (%) (Auto) 45.0% Monocytes (%) (Auto) 11.1% Eosinophils (%) (Auto) 3.3% Basophils (%) (Auto) 0.3% Absolute Immature Granulocyte (auto 0.03T/MM3 Absolute Neutrophils (auto) 2.8T/MM3 Absolute Lymphocytes (auto) 3.1T/MM3 Absolute Monocytes (auto) 0.8T/MM3 Absolute Eosinophils (auto) 0.2T/MM3 Absolute Basophils (auto) 0.0T/MM3 Turbidity < 20 Sodium Level 152MEQ/L Potassium Level 4.0MEQ/L Chloride Level 110MEQ/L Carbon Dioxide Level 29MEQ/L Anion Gap 13MEQ/L Blood Urea Nitrogen 27.0MG/DL Creatinine 1.0MG/DL Glomerular Filtration Rate Calc 57 BUN/Creatinine Ratio 27RATIO Glucose Level 98MG/DL Calculated Osmolality 297MOSM/KG Calcium Level 10.0MG/DL Icterus Index < 2 Thyroid Stimulating Hormone (TSH) 3.31MIU/L Chemistry Specimen Hemolysis < 15 Salicylates Level < 1.0MG/DL Acetaminophen Level < 10UG/ML Alcohol, Quantitative <10MG/DL Urine Collection Type Cleancatch-midstream Urine Color Yellow Urine Turbidity Clear Urine pH 6.0 Urine Specific [place] 1.010 Urine Protein Negative Urine Glucose (UA) Trace Urine Ketones Negative Urine Blood Negative Urine Nitrite Negative Urine Bilirubin Negative Urine Urobilinogen 0.2EU/DL Urine Leukocyte Esterase Trace Urinalysis Comment Microscopic not ind. Urine Opiates Screen PositiveNG/ML Urine Oxycodone Screen NegativeNG/ML Urine Methadone Screen NegativeNG/ML Urine Propoxyphene Screen NegativeNG/ML Urine Barbiturates Screen NegativeNG/ML Urine Tricyclic Antidepressants PositiveNG/ML Urine Phencyclidine Screen NegativeNG/ML Urine Amphetamines Screen NegativeNG/ML Urine Methamphetamines Screen NegativeNG/ML Urine Benzodiazepines Screen NegativeNG/ML Urine Cocaine Screen NegativeNG/ML Urine Cannabinoids Screen NegativeNG/ML Urine Drug Screen Confirmation Sent out Urine Drug Screen Information Pending Medications Current ED Medications Acetaminophen/ Hydrocodone Bitart ([place] 5/325) 1 tab O ONCE PO Last administered on 05/27/16 01:56; Start 05/27/16 at 01:45; Stop 05/27/16 at 01:47 ; Status DC Fosfomycin Tromethamine (Monurol) 3 g O ONCE PO Last administered on 01:56; Start 05/27/16 at 01:45; Stop 05/27/16 at 01:47; Status DC Consult/PCP Consult/PCP : Physician Contacted: PV Time Called: 02:04 Time of first response: 02:04 Type of discussion: Admit Discussion/PCP Discussion Details Requests records faxed to [phone]; will discuss with on-call physician. [phone]: Returned call; will accept pt. Xray Xray : Xray: CXR Portable Interpretation: Normal, Interpreted by MCKENZIE Jeronimo DO May 27, 2016 02:03
[2016-05-27 02:04] LABS: THYROID STIM HORMONE-TSH 3.31 MIU/L (0.47-4.68)
--- NOTE | 2016-05-27 02:15 | NUR ---
STATUS PT AMBULATES BACK TO HER BED AT THIS TIME.
--- NOTE | 2016-05-27 03:30 | NUR ---
STATUS PT IS SLEEPING IN BED AT THIS TIME, NO S/S OF ACUTE DISTRESS.
--- NOTE | 2016-05-27 04:23 | NUR ---
DISPATCH CONTACTED FOR PT TRANSFER AT THIS TIME.
[2016-05-27 04:39] VITALS: BP 135/73; PULSE 90; RESP 16; O2SAT 90
--- NOTE | 2016-05-27 04:39 | NUR ---
DEPART PT LEAVES AMBULATORY [facility] FOR TRANSPORT TO .
[2016-05-27] MEDS ORDERED: QUET50TA53 PO (04:54)
[2016-05-27] MEDS ORDERED: QUET25TA73 PO (04:54)
--- NOTE | 2016-05-27 08:44 | DI ---
Indication: ITS.REASON: Medical clearance PROCEDURE: CHEST 1 VIEW: Encounter: Initial Comparison: None FINDINGS: The lungs are clear. There is no gross abnormal airspace opacity, pleural effusion or pneumothorax identified. Overlapping soft tissues limiting evaluation of the lung bases. The heart size, pulmonary vasculature and mediastinum are grossly normal. IMPRESSION: No acute cardiopulmonary abnormality. .
== END 2016-05-27 04:39 ==
LOC: ED 23:55
DX: R45.851 Suicidal ideations (principal); F33.2 Major depressive disorder, recurrent severe without psychotic features; Z79.899 Other long term (current) drug therapy
CPT/HCPCS: 36415; 80048; 80306; 80307; 81003; 84443; 85025

== ENCOUNTER 2016-06-02 07:12 | Emergency (ER) | payer BC, MEDICAID ==
[~2016-06-02] VITALS: Ht 162.6 cm; Wt 120.2 kg
[~2016-06-02 07:12] MED LIST changes: -ALBU8.5H INH; -BUDE10.2 PO; -CEPH-583 PO; -PHEN-778 PO; +QUET50TA53 PO
--- OUTSIDE RECORDS SUMMARY | 2016-06-02 07:16 | XMS REPORT | Continuity of Care Document ---
Author Author [facility] Organization [facility] Address Unknown Phone Unavailable Care Team Providers Care Filing Clerk Name Role Phone Ilya Felix Primary Care Physician [phone] Source Comments Some departments are not documenting in the electronic medical record. If you do not see the information that you expected, contact Release of Information in the Health Information Management department at [phone] for further assistance in locating additional records.[facility] Active Allergies and Adverse Reactions Allergen Noted Date Severity Reactions Comments Amoxicillin 10/17/2015 Low UNKNOWN Augmentin 07/22/2008 UNKNOWN Haldol 07/22/2008 SEE COMMENTS "causes jaw to lock" Latuda 12/23/2015 Low ANXIETY [place] Carbonate 10/17/2015 Low UNKNOWN Penicillins 12/03/2015 Low [...] Taken Blood Pressure 180/85 04/13/2016 1:43 PM ADMINISTRATIVE LIBRARY ASSISTANT Pulse 101 04/13/2016 1:43 PM ADMINISTRATIVE LIBRARY ASSISTANT Temperature 36.9 C (98.5 F) 12/23/2015 1:05 PM ADMINISTRATIVE LIBRARY ASSISTANT Respiratory Rate 20 04/13/2016 1:43 PM ADMINISTRATIVE LIBRARY ASSISTANT Height 1.626 m (5' 4") 04/13/2016 1:43 PM ADMINISTRATIVE LIBRARY ASSISTANT Weight 121.11 kg (267 lb) 04/13/2016 1:43 PM ADMINISTRATIVE LIBRARY ASSISTANT Body Mass Index 45.81 04/13/2016 1:43 PM ADMINISTRATIVE LIBRARY ASSISTANT Oxygen Saturation 94% 04/13/2016 1:43 PM ADMINISTRATIVE LIBRARY ASSISTANT Plan of Care Health Maintenance Due Date Last Done Comments Hepatitis C Screening 1960 Physical (Comprehensive) 1965 Exam Pertussis Vaccine 1969 Tetanus Vaccine 08/16/1975 Cervical Cancer Screening 08/16/1979 Breast Cancer Screening 1998 Colorectal Cancer 2008 Screening Influenza Vaccine 10/15/2016 Results from Last 3 Months Not on file
[2016-06-02 07:18] VITALS: TEMP 98.9; Ht 162.6 cm; Wt 120.2 kg
--- OUTSIDE RECORDS SUMMARY | 2016-06-02 07:24 | XMS REPORT | Continuity of Care Document ---
Author Author [facility] Organization [facility] Address Unknown Phone Unavailable Care Team Providers Care Fiberglass Machine Operator Name Role Phone Ilya Felix Primary Care Physician [phone] Source Comments Some departments are not documenting in the electronic medical record. If you do not see the information that you expected, contact Release of Information in the Health Information Management department at [phone] for further assistance in locating additional records.[facility] Active Allergies and Adverse Reactions Allergen Noted Date Severity Reactions Comments Amoxicillin 10/17/2015 Low UNKNOWN Augmentin 07/22/2008 UNKNOWN Haldol 07/22/2008 SEE COMMENTS "causes jaw to lock" Latuda 12/23/2015 Low ANXIETY [place] Carbonate 10/17/2015 Low UNKNOWN Penicillins 12/03/2015 Low [...] Taken Blood Pressure 180/85 04/13/2016 1:43 PM STUDENT COUNSELLOR Pulse 101 04/13/2016 1:43 PM STUDENT COUNSELLOR Temperature 36.9 C (98.5 F) 12/23/2015 1:05 PM STUDENT COUNSELLOR Respiratory Rate 20 04/13/2016 1:43 PM STUDENT COUNSELLOR Height 1.626 m (5' 4") 04/13/2016 1:43 PM STUDENT COUNSELLOR Weight 121.11 kg (267 lb) 04/13/2016 1:43 PM STUDENT COUNSELLOR Body Mass Index 45.81 04/13/2016 1:43 PM STUDENT COUNSELLOR Oxygen Saturation 94% 04/13/2016 1:43 PM STUDENT COUNSELLOR Plan of Care Health Maintenance Due Date Last Done Comments Hepatitis C Screening 1960 Physical (Comprehensive) 1965 Exam Pertussis Vaccine 1969 Tetanus Vaccine 08/16/1975 Cervical Cancer Screening 08/16/1979 Breast Cancer Screening 1998 Colorectal Cancer 2008 Screening Influenza Vaccine 10/15/2016 Results from Last 3 Months Not on file
--- NOTE | 2016-06-02 07:25 | NUR ---
PHYSICIAN VISIT DR. ZAMORA IN TO SEE PATIENT.
[2016-06-02] MEDS ORDERED: ONDANSETRON ODT 4 MG TAB SL ONE (07:30)
--- NOTE | 2016-06-02 07:38 | NUR ---
LABORATORY LAB AT BEDSIDE TO DRAW.
--- NOTE | 2016-06-02 07:44 | NUR ---
X-RAY TRANSPORTED TO X-RAY VIA STRETCHER PER X-RAY TECH.
[2016-06-02 07:53] LABS: BASOPHILS % (AUTO) 0.1 % (0-2); EOSINOPHILS # (AUTO) 0.2 T/MM3 (0-0.5); EOSINOPHILS % (AUTO) 2.4 % (0-4); HCT - HEMATOCRIT 41.1 % (36-46); HGB - HEMOGLOBIN 13.3 GM/DL (12-16); IMMATURE GRANULOCYTE # (AUTO) 0.02 T/MM3 (0.00-0.03); IMMATURE GRANULOCYTE % (AUTO) 0.3 % (0.0-0.5); LYMPHOCYTES # (AUTO) 1.5 T/MM3 (1-4.8); LYMPHOCYTES % (AUTO) 19.7 % (23-45); MEAN CORPUSCULAR HGB 26.9 UUG (26-34); MEAN CORPUSCULAR HGB CONC(MCHC 32.4 GM/DL (31-37); MEAN PLATELET VOLUME 9.8 UM3 (9.4-12.4); MONOCYTES # (AUTO) 0.8 T/MM3 (0-0.8); MONOCYTES % (AUTO) 10.6 % (0-9.0); NEUTROPHILS #(AUTO)-ABSOLUTE 4.9 T/MM3 (1.8-7.7); NEUTROPHILS % (AUTO) 66.9 % (33-66); RED BLOOD COUNT 4.95 M/MM3 (4.00-5.20); WBC - WHITE BLOOD COUNT 7.4 T/MM3 (4.5-11.0)
[2016-06-02 08:04] LABS: ALBUMIN 3.9 G/DL (3.5-5.0); ALBUMIN/GLOBULIN RATIO 1.1 RATIO (1.1-2.2); ALKALINE PHOSPHATASE 94 U/L (38-126); ALT (SGPT) 35 U/L (9-52); ANION GAP 15 MEQ/L (5-15); AST (SGOT) 23 U/L (14-36); BUN/CREATININE RATIO 19 RATIO (6-26); CALCIUM 9.7 MG/DL (8.4-10.2); CHLORIDE 109 MEQ/L (98-107); CO2 - CARBON DIOXIDE 25 MEQ/L (22-30); CREATININE 0.9 MG/DL (0.7-1.2); GLOMERULAR FILTRATION RATE 65; GLUCOSE 115 MG/DL (65-110); LIPASE 180 U/L (23-300); POTASSIUM 3.8 MEQ/L (3.6-5); SODIUM 149 MEQ/L (134-144); TOTAL PROTEIN 7.3 G/DL (6.3-8.2)
--- NOTE | 2016-06-02 08:11 | NUR ---
RETURNED PATIENT RETURNED FROM X-RAY.
--- NOTE | 2016-06-02 08:15 | NUR ---
URINE SPECIMEN URINE SPECIMEN OBTAINED, LABELED, AND WALKED TO LAB BY THIS NURSE. PATIENT AMBULATED TO AND FROM BATHROOM. URINE YELLOW, CLEAR.
--- NOTE | 2016-06-02 08:18 | DI ---
Indication: ITS.REASON: abdominal pain PROCEDURE: KUB W/UPRIGHT: Encounter: Initial Comparison: None Findings: The visualized lung bases are clear. There is no free air on the upright view. The bowel gas pattern is nonobstructive and nonspecific. Gas is seen in nondilated small and large bowel to the level of the rectum. Moderate stool is seen throughout the colon. Impression: Nonobstructive nonspecific bowel gas pattern. .
[2016-06-02 08:40] LABS: BLOOD, URINE NEGATIVE (NEGATIVE); COLOR,URINE YELLOW (YELLOW); LEUKOCYTE ESTERASE ,URINE 1+ (NEGATIVE); NITRITE,URINE NEGATIVE (NEGATIVE); UROBILINOGEN,URINE 0.2 EU/DL (NORMAL)
--- NOTE | 2016-06-02 08:51 | ERPDOC ---
Departure Disposition Decision Date: Jun 02, 2016 Disposition Decision Time: 08:52 Disposition: 01 DISCHARGED HOME, SELF-CARE Impression Impression Impression: Primary Impression: Obstipation Severity: Moderate Condition: Improved Seen By: Physician only Referrals: BOBBI DOW MD (PCP) Patient Instructions: Abdominal Pain (ED) Problems/Meds/Labs Reviewed?: Yes Medications reviewed and manag: Yes Additional Instructions: Levbid, one tablet twice daily as needed. Please see her primary care provider if symptoms continue today. Follow up care ordered?: Yes Mental Status: Alert, Oriented Scripts Hyoscyamine (Levbid) 0.375 Mg Tablet 1 TAB PO BID, #45 TAB 2 Refills Prov: WILLIAM ZAMORA MD 06/02/16 HPI - Abdominal Pain General Chief Complaint: Abdominal Pain Stated Complaint: L SIDE ABD PAIN Time Seen by Provider: 07:13 HPI - Abdominal Pain Initial Comments 55-year-old female presents with left upper quadrant abdominal pain which started this morning at about 10 minutes before 7.. She got up and used the bathroom, had a normal bowel movement which was nonpainful. A couple of minutes after she got off, she noticed some cramping in her left upper quadrant. She lay down to help resolve it, but it did not resolve. She tried taking some ibuprofen which did not help and she then presented to the emergency department. She has had a UTI within the last month as well as some other intermittent abdominal pains. Fever chills no cough, no diarrhea. No change in diet habits or foods. No one else at the [facility] and is sick. She did notice that yesterday there was a very foul odor the came out of the bathroom after someone used it, she wonders if that smell made her sick. Allergies: Coded Allergies: Penicillins (Verified Allergy, Unknown, 05/27/16) amoxicillin (Verified Allergy, Unknown, 05/27/16) clavulanic acid (Verified Allergy, Unknown, 05/27/16) grapefruit (Verified Allergy, Unknown, 05/27/16) haloperidol (Verified Allergy, Unknown, 05/27/16) ciprofloxacin (Verified Adverse Reaction, Unknown, STOMACH ACHE, 05/27/16) Uncoded Allergies: POTASSIUM CLAVULANATE (Allergy, Unknown, 05/27/16) Past History Patient Surgical History L Breast surgery, hysterectomy, bunion Past Medical History GI: GERD Female: renal insufficiency Psychological: anxiety, depression, psychosis Family History Family History: Negative Social History Smoking Status: Never smoker Second Hand Exposure: Yes Substance Use Type: does not use Alcohol Intake: none Record Review Pertinent history updated: Yes Review of Systems GI Upper Abdomen: see HPI Lower Abdomen: see HPI General: see HPI All other Systems All Other Systems: Reviewed and Negative Physical Exam General General Nourishment: well nourished, well developed, appears stated age, no acute distress General Body Habitus: well groomed Vitals and Pain First Documented Vital Signs Date Time Temp Pulse Resp B/P Pulse Ox O2 Delivery O2 Flow Rate FiO2 06/02/16 07:18 98.9 98 16 130/63 94 Room Air Weight: Kilograms: 120.200 Height (feet): 5 Height (inches): 4.00 Triage Pain Scale: Normal Exams: Head: Normocephalic w/o trauma Chest/Resp: Clear all goins, with good airflow, and symmetry bilaterally CV: Regular rate and rhythm, without murmur or gallop, Pulses 2+ all extremities, capillary refill, <2 seconds all ext., no pedal edema noted Integumentary: No rashes, hives, or bruising noted, hair and nails, without abnormality Abdomen (brief) Abdominal Brief: FOUND: bowel normo active x4, soft, tender Comments Very mild tenderness left upper quadrant. No specific point tenderness, no masses palpable. Differential Diagnoses Considering: Other (constipation, diverticulitis, kidney stone, diverticulosis , ureteral colic) Progress Results/Orders Orders Procedure Category Date Status Time Cbc W/Auto LAB 06/02/16 Complete Diff-Reflex Manual 07:29 Cmp - Comprehensive LAB 06/02/16 Complete Metabolic 07:29 Lipase LAB 06/02/16 Complete 07:29 Kub W/Upright RAD 06/02/16 Resulted 07:29 Ondansetron Odt PHA 06/02/16 Complete (Zofran Odt) 07:30 UA, LAB 06/02/16 In Process Dip&Micro(Complete) & 08:22 Lab Results Laboratory Tests Test 06/02/16 07:46 06/02/16 08:22 White Blood Count 7.4T/MM3 Red Blood Count 4.95M/MM3 Hemoglobin 13.3GM/DL Hematocrit 41.1% Mean Corpuscular Volume 83.0UM3 Mean Corpuscular Hemoglobin 26.9UUG Mean Corpuscular Hemoglobin Concent 32.4GM/DL RDW Standard Deviation 47.8FL Platelet Count 223T/MM3 Mean Platelet Volume 9.8UM3 Immature Granulocyte % (Auto) 0.3% Neutrophils (%) (Auto) 66.9% Lymphocytes (%) (Auto) 19.7% Monocytes (%) (Auto) 10.6% Eosinophils (%) (Auto) 2.4% Basophils (%) (Auto) 0.1% Absolute Immature Granulocyte (auto 0.02T/MM3 Absolute Neutrophils (auto) 4.9T/MM3 Absolute Lymphocytes (auto) 1.5T/MM3 Absolute Monocytes (auto) 0.8T/MM3 Absolute Eosinophils (auto) 0.2T/MM3 Absolute Basophils (auto) 0.0T/MM3 Turbidity < 20 Sodium Level 149MEQ/L Potassium Level 3.8MEQ/L Chloride Level 109MEQ/L Carbon Dioxide Level 25MEQ/L Anion Gap 15MEQ/L Blood Urea Nitrogen 17.0MG/DL Creatinine 0.9MG/DL Glomerular Filtration Rate Calc 65 BUN/Creatinine Ratio 19RATIO Glucose Level 115MG/DL Calculated Osmolality 289MOSM/KG Calcium Level 9.7MG/DL Total Bilirubin 0.70MG/DL Icterus Index < 2 Aspartate Amino Transf (AST/SGOT) 23U/L Alanine Aminotransferase (ALT/SGPT) 35U/L Alkaline Phosphatase 94U/L Total Protein 7.3G/DL Albumin 3.9G/DL Globulin 3.4G/DL Albumin/Globulin Ratio 1.1RATIO Lipase 180U/L Chemistry Specimen Hemolysis < 15 Urine Collection Type Voided-not cc-midstr Urine Color Yellow Urine Turbidity Clear Urine pH 7.0 Urine Specific [place] 1.010 Urine Protein Negative Urine Glucose (UA) Negative Urine Ketones Negative Urine Blood Negative Urine Nitrite Negative Urine Bilirubin Negative Urine Urobilinogen 0.2EU/DL Urine Leukocyte Esterase 1+ Urine RBC Pending Urine WBC Pending Urine Bacteria Pending Medications Current ED Medications Ondansetron HCl (Zofran Odt) 4 mg O ONCE SL Last administered on 06/02/16t 08: 13; Start 06/02/16 at 07:30; Stop 06/02/16 at 07:32; Status DC Progress Progress Abdominal x-rays negative except for bowel gas, labs are appropriate. Patient was reexamined prior to discharge and symptoms had not changed or worsened. I would like her to come back if things get worse today. Or she can go see her primary care provider. She was given Levsin to try twice daily to see if it will help with the cramping. Also would like her to use regularly a stool softener. We discussed MiraLAX which she will cut to one half Daily once she is regular. Again she is to follow-up if symptoms are worsening as this could be early presentation of something more sinister. She is aware of this. WILLIAM ZAMORA MD Jun 02, 2016 08:51
[2016-06-02 08:53] LABS: BACTERIA,URINE NEGATIVE (NEGATIVE); RBC,URINE NONE SEEN /HPF (0-3); WBC,URINE NONE SEEN /HPF (0-5)
[2016-06-02] MEDS ORDERED: HYOS0.3730 PO (08:58)
[2016-06-02 09:20] VITALS: BP 117/61; PULSE 94; RESP 16; O2SAT 93
== END 2016-06-02 09:28 | disposition home or self-care (01) ==
LOC: ED 07:12
DX: K59.00 Constipation, unspecified (principal)
CPT/HCPCS: 36415; 80053; 81001; 83690; 85025

== ENCOUNTER 2016-06-11 17:56 | Emergency (ER) | payer BC, MEDICAID ==
[~2016-06-11] VITALS: Ht 162.6 cm; Wt 118.0 kg
[~2016-06-11 17:56] MED LIST changes: -CALC1TAB PEG; +CALC1TAB PO; +FLUT15.88 EA NOSTRIL; -FLUT15.88 NS; +HYOS0.3730 PO
--- OUTSIDE RECORDS SUMMARY | 2016-06-11 18:01 | XMS REPORT | Continuity of Care Document ---
Author Author [facility] Organization [facility] Address Unknown Phone Unavailable Care Team Providers Care Coil Assembler Name Role Phone Ilya Felix Primary Care Physician [phone] Source Comments Some departments are not documenting in the electronic medical record. If you do not see the information that you expected, contact Release of Information in the Health Information Management department at [phone] for further assistance in locating additional records.[facility] Active Allergies and Adverse Reactions Allergen Noted Date Severity Reactions Comments Amoxicillin 10/17/2015 Low UNKNOWN Augmentin 07/22/2008 UNKNOWN Haldol 07/22/2008 SEE COMMENTS "causes jaw to lock" Latuda 12/23/2015 Low ANXIETY [place] Carbonate 10/17/2015 Low UNKNOWN Penicillins 12/03/2015 Low [...] Milan Perez MD Referral - physical therapy Social History Tobacco Use Types Packs/Day Years Used Date Never Smoker Smokeless Tobacco: Never Used Alcohol Use Drinks/Week oz/Week Comments No Last Filed Vital Signs Vital Sign Reading Time Taken Blood Pressure 180/85 04/13/2016 1:43 PM BAG LINER Pulse 101 04/13/2016 1:43 PM BAG LINER Temperature 36.9 C (98.5 F) 12/23/2015 1:05 PM BAG LINER Respiratory Rate 20 04/13/2016 1:43 PM BAG LINER Height 1.626 m (5' 4") 04/13/2016 1:43 PM BAG LINER Weight 121.11 kg (267 lb) 04/13/2016 1:43 PM BAG LINER Body Mass Index 45.81 04/13/2016 1:43 PM BAG LINER Oxygen Saturation 94% 04/13/2016 1:43 PM BAG LINER Plan of Care Health Maintenance Due Date Last Done Comments Hepatitis C Screening 1958 Physical (Comprehensive) 1965 Exam Pertussis Vaccine 1969 Tetanus Vaccine 08/16/1975 Cervical Cancer Screening 08/16/1979 Breast Cancer Screening 1998 Colorectal Cancer 2008 Screening Influenza Vaccine 10/15/2016 Results from Last 3 Months Not on file
[2016-06-11 18:05] VITALS: Ht 162.6 cm; Wt 118.0 kg
--- NOTE | 2016-06-11 18:16 | ERPDOC ---
Departure Disposition Decision Date: Jun 11, 2016 Disposition Decision Time: 20:27 (NATHALIA LOPEZ APRN) Disposition: 01 DISCHARGED HOME, SELF-CARE Impression Impression (NATHALIA LOPEZ APRN) Impression: Primary Impression: Dysuria Additional Impression: Malaise Severity: Moderate (NATHALIA LOPEZ APRN) Condition: Improved Seen By: Mid-level only (NATHALIA LOPEZ APRN) Referrals: Rad DOW MD Patient Instructions: Dysuria (ED) Problems/Meds/Labs Reviewed?: Yes Medications reviewed and manag: Yes (NATHALIA LOPEZ APRN) Additional Instructions: Your labs did not show any acute findings. Follow with your PCP for re-evaluation early next week if symptoms are not improving. You may take 800mg of ibuprofen as needed for pain. OTC Azo for burning with urination as needed. You may take norco 5/325mg, 1-2 tabs as needed for pain every 6 hours. Follow up care ordered?: Yes Mental Status: Alert, Oriented (NATHALIA LOPEZ APRN) Scripts Hydrocodone/Acetaminophen ([place] 5-325 Tablet) 5-325 Tablet 1-2 TAB PO Q6HPRN Y for PAIN, #15 TAB Prov: NATHALIA LOPEZ APRN 06/11/16 HPI - Female General Chief Complaint: Female Urogenital Problems Stated Complaint: POSSIBLE BLADDER INFECTION Time Seen by Provider: 18:15 Source: patient (NATHALIA LOPEZ APRN) Time Seen by Provider: 18:15 (IDA VILLAVICENCIO DO) HPI - Female Initial Comments 55 YO F presents to ED with report of dysuria, urinary frequency and LLQ intermittent abdominal cramping. Patient says she woke up this morning with burning with urination and has had urinary frequency all day. Reports mild intermittent LLQ abdominal cramping. Says she began to "feel sick all over this afternoon". Admits nausea (none at this time) and generalized body aches. Denies fever, chills, vomiting, hematuria, flank pain or diarrhea. Patient was dx. with an UTI first week of May. Says she did follow up with her PCP after completing antibiotic and had repeat UA which was clear. Pain Scale: Now: 8/10 (generalized body aches) Location: LLQ Radiation: none Associated Symptoms: DENIES: diaphoresis, dysuria, fever/chills, loss of bladder control, lower back pain, lumps, mass, nocturia, polyuria, swelling, syncope, urinary frequency (NATHALIA LOPEZ APRN) Allergies: Coded Allergies: Penicillins (Verified Allergy, Unknown, 06/11/16) amoxicillin (Verified Allergy, Unknown, 06/11/16) clavulanic acid (Verified Allergy, Unknown, 06/11/16) grapefruit (Verified Allergy, Unknown, 06/11/16) haloperidol (Verified Allergy, Unknown, 06/11/16) ciprofloxacin (Verified Adverse Reaction, Unknown, STOMACH ACHE, 06/11/16) Uncoded Allergies: POTASSIUM CLAVULANATE (Allergy, Unknown, 05/27/16) Past History Patient Surgical History L Breast surgery, hysterectomy, bunion (NATHALIA LOPEZ APRN) Past Medical History Metabolic: diabetes Cardiac: DENIES: angina Respiratory: DENIES: asthma GI: GERD Female: renal insufficiency Neurological: DENIES: seizures Musculoskeletal: back pain, neck pain, DENIES: rheumatoid arthritis Psychological: anxiety, depression, psychosis (NATHALIA LOPEZ APRN) Surgical History General: back, neck, tonsils Reproductive/: hysterectomy Joint: elbow, other (wrist) (NATHALIA LOPEZ APRN) Family History Family PMH: FOUND: other (noncontributory) (NATHALIA LOPEZ APRN) Social History Second Hand Exposure: Yes Substance Use Type: does not use Alcohol Intake: none Marital Status: Sexuality: male partner (NATHALIA LOPEZ APRN) Review of Systems Constitutional Constitutional: DENIES: chills, dizziness, fever, weakness (NATHALIA LOPEZ APRN) Eyes General: DENIES: erythema, exudate Lids/Accessories: DENIES: erythema, swelling (NATHALIA LOPEZ APRN) ENMT Ears: DENIES: pain Sinuses: DENIES: congestion, rhinorrhea Mouth/Throat: DENIES: sore throat (NATHALIA LOPEZ APRN) Cardiovascular Cardiac: DENIES: chest pain, murmur Rhythm/Rate: DENIES: palpitations (NATHALIA LOPEZ APRN) Pulmonary Respiratory: DENIES: cough, dyspnea (NATHALIA LOPEZ APRN) GI Upper Abdomen: nausea, DENIES: pain, vomiting Lower Abdomen: pain, see HPI, DENIES: diarrhea (LOPEZ,NATHALIA A LIME VAT TENDER) General: dysuria, frequency, DENIES: pain (YANA LOPEZS A LIME VAT TENDER) Musculoskeletal General: pain (genralized body aches) (YANA LOPEZS A LIME VAT TENDER) Integumentary Skin: DENIES: color change, itching, rash (YANA LOPEZS A LIME VAT TENDER) Neurological General: DENIES: ataxia, change in strength, numbness, paralysis/paresis, weakness (YNAA LOPEZS A LIME VAT TENDER) Psychiatric Psychiatric: DENIES: anxiety, depression, nervousness (YANA LOPEZS A LIME VAT TENDER) Physical Exam General General Nourishment: well nourished, well developed, no acute distress, adult General Body Habitus: well groomed (YANA LOPEZS A LIME VAT TENDER) Vitals and Pain First Documented Vital Signs Date Time Temp Pulse Resp B/P Pulse Ox O2 Delivery O2 Flow Rate FiO2 06/11/16 18:05 98.7 86 19 135/71 94 Room Air (IDA VILLAVICENCIO DO) Vitals and Pain Weight: Kilograms: 118.000 Height (feet): 5 Height (inches): 4.00 Triage Pain Scale: (YANA LOPEZS A LIME VAT TENDER) Eyes (brief) Eyes Brief: found: EOMI (YANA LOPEZS A LIME VAT TENDER) ENMT (brief) ENMT Brief: FOUND: mucosa moist, NOT FOUND: nasal exudate, nasal swelling, pharnyx erythema (JOHNNATHALIA A LIME VAT TENDER) Neck (brief) Neck: FOUND: trachea midline, NOT FOUND: adenopathy, tenderness, thyromegaly ( JOHNNATHALIA A LIME VAT TENDER) Respiratory (brief) Respiratory: FOUND: clear all goins, equal bilaterally, symmetrical (JOHN NATHALIA A LIME VAT TENDER) Cardiovascular (brief) Cardiac: FOUND: regular rate, regular rhythm (LOPEZ,NATHALIA A LIME VAT TENDER) Abdomen (brief) Abdominal Brief: FOUND: bowel normo active x4, soft, NOT FOUND: tender (no reproducible TTP) (LOPEZ,NATHALIA A LIME VAT TENDER) Musculoskeletal (brief) Musculoskeletal Brief: NOT FOUND: deformity, loss of motion (LOPEZ,NATHALIA A LIME VAT TENDER) Integumentary (brief) Integumentary Brief: FOUND: dry, pink, warm (LOPEZ,NATHALIA A LIME VAT TENDER) Neurologic (brief) Neurological Brief: FOUND: motor-no gross deficits, sensory-no gross deficits ( NATHALIA LOPEZ APRN) Psychiatric (brief) Psychiatric Brief: FOUND: alert, normal affect, oriented (NATHALIA LOPEZ APRN ) Differential Diagnoses Considering: Renal Colic, UTI Considering: Constipation, Diverticulitis, Gastroenteritis (NATHALIA LOPEZ APRN) Progress Results/Orders Orders Procedure Category Date Status Time Ua, Dip Wreflex LAB 06/11/16 Complete Microsc & Fishing Rod Mechanic 18:28 Cbc W/Auto LAB 06/11/16 Complete Diff-Reflex Manual Cmp - Comprehensive LAB 06/11/16 Complete Metabolic Ketorolac (Toradol) PHA 06/11/16 Complete 19:30 Hydrocodone/Acetaminophen PHA 06/11/16 Complete ([place] 5/325) 20:15 (IDA VILLAVICENCIO DO) Lab Results Laboratory Tests Test 06/11/16 18:21 06/11/16 18:44 Urine Collection Type Voided-not cc-midstr Urine Color Yellow Urine Turbidity Clear Urine pH 6.5 Urine Specific [place] <=1.005 Urine Protein Negative Urine Glucose (UA) Negative Urine Ketones Negative Urine Blood Negative Urine Nitrite Negative Urine Bilirubin Negative Urine Urobilinogen 0.2EU/DL Urine Leukocyte Esterase Trace Urinalysis Comment Microscopic not ind. Glucometer 92mg/dL White Blood Count 7.1T/MM3 Red Blood Count 4.86M/MM3 Hemoglobin 13.2GM/DL Hematocrit 40.0% Mean Corpuscular Volume 82.3UM3 Mean Corpuscular Hemoglobin 27.2UUG Mean Corpuscular Hemoglobin Concent 33.0GM/DL RDW Standard Deviation 46.3FL Platelet Count 204T/MM3 Mean Platelet Volume 9.4UM3 Immature Granulocyte % (Auto) 0.3% Neutrophils (%) (Auto) 45.0% Lymphocytes (%) (Auto) 40.4% Monocytes (%) (Auto) 11.0% Eosinophils (%) (Auto) 2.7% Basophils (%) (Auto) 0.6% Absolute Immature Granulocyte (auto 0.02T/MM3 Absolute Neutrophils (auto) 3.2T/MM3 Absolute Lymphocytes (auto) 2.9T/MM3 Absolute Monocytes (auto) 0.8T/MM3 Absolute Eosinophils (auto) 0.2T/MM3 Absolute Basophils (auto) 0.0T/MM3 Turbidity < 20 Sodium Level 149MEQ/L Potassium Level 4.0MEQ/L Chloride Level 109MEQ/L Carbon Dioxide Level 28MEQ/L Anion Gap 12MEQ/L Blood Urea Nitrogen 19.0MG/DL Creatinine 0.9MG/DL Glomerular Filtration Rate Calc 65 BUN/Creatinine Ratio 21RATIO Glucose Level 109MG/DL Calculated Osmolality 289MOSM/KG Calcium Level 10.0MG/DL Total Bilirubin 0.50MG/DL Icterus Index < 2 Aspartate Amino Transf (AST/SGOT) 23U/L Alanine Aminotransferase (ALT/SGPT) 39U/L Alkaline Phosphatase 87U/L Total Protein 7.1G/DL Albumin 3.9G/DL Globulin 3.2G/DL Albumin/Globulin Ratio 1.2RATIO Chemistry Specimen Hemolysis < 15 (IDA VILLAVICENCIO DO) Medications Current ED Medications Ketorolac Tromethamine (Toradol) 60 mg O ONCE IM Last administered on 19:35; Start 06/11/16 at 19:30; Stop 06/11/16 at 19:31; Status DC Acetaminophen/ Hydrocodone Bitart ([place] 5/325) 2 tab O ONCE PO Last administered on 06/11/16 20:20; Start 06/11/16 at 20:15; Stop 06/11/16 at 20:16 ; Status DC (IDA VILLAVICENCIO DO) Progress Progress CBC unremarkable NA 149 which is consistent with previous sodiums Patient had renal CT on 05-21-16 which did not show any stones in the kidneys Patient reports she has ran out of her norco that she takes for her chronic back pain. Patient reports improvement of pain after toradol. I discussed labs with patient and answered questions. Patient verbalized understanding of treatment plan, follow up with PCP and return precautions. (NATHALIA LOPEZ APRN) NATHALIA LOPEZ APRN Jun 11, 2016 18:16 IDA VILLAVICENCIO DO June 14, 2016 23:44
--- NOTE | 2016-06-11 18:25 | NUR ---
PROVIDER Mya LOPEZ MEDICAL BILLING SPECIALIST AT BEDSIDE FOR H&P
--- OUTSIDE RECORDS SUMMARY | 2016-06-11 18:32 | XMS REPORT | Continuity of Care Document ---
Author Author [facility] Organization [facility] Address Unknown Phone Unavailable Care Team Providers Care Sales Center Manager Name Role Phone Ilya Felix Primary Care Physician [phone] Source Comments Some departments are not documenting in the electronic medical record. If you do not see the information that you expected, contact Release of Information in the Health Information Management department at [phone] for further assistance in locating additional records.[facility] Active Allergies and Adverse Reactions Allergen Noted Date Severity Reactions Comments Amoxicillin 10/17/2015 Low UNKNOWN Augmentin 07/22/2008 UNKNOWN Haldol 07/22/2008 SEE COMMENTS "causes jaw to lock" Latuda 12/23/2015 Low ANXIETY [place] Carbonate 10/17/2015 Low UNKNOWN Penicillins 12/03/2015 Low [...] Taken Blood Pressure 180/85 04/13/2016 1:43 PM MEDICAL INFORMATION SPECIALIST Pulse 101 04/13/2016 1:43 PM MEDICAL INFORMATION SPECIALIST Temperature 36.9 C (98.5 F) 12/23/2015 1:05 PM MEDICAL INFORMATION SPECIALIST Respiratory Rate 20 04/13/2016 1:43 PM MEDICAL INFORMATION SPECIALIST Height 1.626 m (5' 4") 04/13/2016 1:43 PM MEDICAL INFORMATION SPECIALIST Weight 121.11 kg (267 lb) 04/13/2016 1:43 PM MEDICAL INFORMATION SPECIALIST Body Mass Index 45.81 04/13/2016 1:43 PM MEDICAL INFORMATION SPECIALIST Oxygen Saturation 94% 04/13/2016 1:43 PM MEDICAL INFORMATION SPECIALIST Plan of Care Health Maintenance Due Date Last Done Comments Hepatitis C Screening 1960 Physical (Comprehensive) 1965 Exam Pertussis Vaccine 1969 Tetanus Vaccine 08/16/1975 Cervical Cancer Screening 08/16/1979 Breast Cancer Screening 1998 Colorectal Cancer 2008 Screening Influenza Vaccine 10/15/2016 Results from Last 3 Months Not on file
[2016-06-11] MEDS ORDERED: [UNRECOGNIZED DRUG - CODE] PO (18:34)
[2016-06-11] MEDS ORDERED: VENL75CA60 PO (18:34)
[2016-06-11] MEDS ORDERED: HYDR50CA5 PO (18:34)
[2016-06-11 18:37] LABS: BLOOD, URINE NEGATIVE (NEGATIVE); COLOR,URINE YELLOW (YELLOW); LEUKOCYTE ESTERASE ,URINE TRACE (NEGATIVE); NITRITE,URINE NEGATIVE (NEGATIVE); UROBILINOGEN,URINE 0.2 EU/DL (NORMAL)
[2016-06-11] MEDS ORDERED: ACET325T51 PO (18:38)
[2016-06-11] MEDS ORDERED: QUET100T69 PO (18:38)
[2016-06-11] MEDS ORDERED: BENZ-16 PO (18:42)
--- NOTE | 2016-06-11 18:44 | NUR ---
LAB LAB AT BEDSIDE FOR BLOOD DRAW
[2016-06-11] MEDS ORDERED: [UNRECOGNIZED DRUG - CODE] PO (18:46)
[2016-06-11] MEDS ORDERED: BUDE10.2 INH (18:51)
[2016-06-11] MEDS ORDERED: ALBU8.5H INH (18:51)
[2016-06-11] MEDS ORDERED: BUSP10TA3 PO (18:53)
[2016-06-11 18:54] LABS: BASOPHILS % (AUTO) 0.6 % (0-2); EOSINOPHILS # (AUTO) 0.2 T/MM3 (0-0.5); EOSINOPHILS % (AUTO) 2.7 % (0-4); HGB - HEMOGLOBIN 13.2 GM/DL (12-16); IMMATURE GRANULOCYTE # (AUTO) 0.02 T/MM3 (0.00-0.03); IMMATURE GRANULOCYTE % (AUTO) 0.3 % (0.0-0.5); LYMPHOCYTES # (AUTO) 2.9 T/MM3 (1-4.8); LYMPHOCYTES % (AUTO) 40.4 % (23-45); MEAN CORPUSCULAR HGB 27.2 UUG (26-34); MEAN CORPUSCULAR VOLUME 82.3 UM3 (80-100); MEAN PLATELET VOLUME 9.4 UM3 (9.4-12.4); MONOCYTES # (AUTO) 0.8 T/MM3 (0-0.8); NEUTROPHILS #(AUTO)-ABSOLUTE 3.2 T/MM3 (1.8-7.7); RED BLOOD COUNT 4.86 M/MM3 (4.00-5.20); WBC - WHITE BLOOD COUNT 7.1 T/MM3 (4.5-11.0)
[2016-06-11 18:59] LABS: ALBUMIN 3.9 G/DL (3.5-5.0); ALBUMIN/GLOBULIN RATIO 1.2 RATIO (1.1-2.2); ALKALINE PHOSPHATASE 87 U/L (38-126); ALT (SGPT) 39 U/L (9-52); ANION GAP 12 MEQ/L (5-15); AST (SGOT) 23 U/L (14-36); BUN/CREATININE RATIO 21 RATIO (6-26); CHLORIDE 109 MEQ/L (98-107); CO2 - CARBON DIOXIDE 28 MEQ/L (22-30); CREATININE 0.9 MG/DL (0.7-1.2); GLOMERULAR FILTRATION RATE 65; GLUCOSE 109 MG/DL (65-110); SODIUM 149 MEQ/L (134-144); TOTAL PROTEIN 7.1 G/DL (6.3-8.2)
--- NOTE | 2016-06-11 19:27 | NUR ---
PROVIDER Mya LOPEZ FORMING MILL OPERATOR AT BEDSIDE TO DISCUSS RESULTS AND POC
[2016-06-11] MEDS ORDERED: KETOROLAC 60mg/2ml INJECTION IM ONE (19:30)
--- NOTE | 2016-06-11 20:10 | NUR ---
UPDATE PATIENT SITTING IN ROOM IN CHAIR. REPORTS NO CHANGE IN PAIN AT THIS TIME.
[2016-06-11] MEDS ORDERED: HYDROCODONE/APAP 5 mg/325 mg TABLET PO ONE (20:15)
[2016-06-11] MEDS ORDERED: HYDR-4246 PO (20:33)
[2016-06-11 20:40] VITALS: BP 144/80; PULSE 84; RESP 19; TEMP 98.7; O2SAT 92
== END 2016-06-11 20:40 | disposition home or self-care (01) ==
LOC: ED 17:56
DX: R30.0 Dysuria (principal); R35.0 Frequency of micturition; R10.32 Left lower quadrant pain; R53.81 Other malaise
CPT/HCPCS: 36415; 80053; 81003; 82948; 85025; 96372; 99283; J1885

== ENCOUNTER 2016-06-13 16:07 | Emergency (ER) | payer BC, MEDICAID ==
[~2016-06-13] VITALS: Ht 162.6 cm; Wt 119.4 kg
[~2016-06-13 16:07] MED LIST changes: +ACET325T51 PO; +ALBU8.5H INH; +BENZ-16 PO; +BUDE10.2 INH; -CALC1TAB PO; -DULO30CA52 PO; -GUAI-782 PO; -GUAI400T65 PO; +HYDR-4246 PO; -HYOS0.3730 PO; +QUET100T69 PO; -QUET50TA53 PO; +VENL75CA60 PO; +[UNRECOGNIZED DRUG - CODE] PO; +[UNRECOGNIZED DRUG - CODE] PO
[2016-06-13 16:10] VITALS: Ht 162.6 cm; Wt 119.4 kg
--- OUTSIDE RECORDS SUMMARY | 2016-06-13 16:20 | XMS REPORT | Continuity of Care Document ---
Author Author [facility] Organization [facility] Address Unknown Phone Unavailable Care Team Providers Care Spinneret Person Name Role Phone Ilya Felix Primary Care Physician [phone] Source Comments Some departments are not documenting in the electronic medical record. If you do not see the information that you expected, contact Release of Information in the Health Information Management department at [phone] for further assistance in locating additional records.[facility] Active Allergies and Adverse Reactions Allergen Noted Date Severity Reactions Comments Amoxicillin 10/17/2015 Low UNKNOWN Augmentin 07/22/2008 UNKNOWN Haldol 07/22/2008 SEE COMMENTS "causes jaw to lock" Latuda 12/23/2015 Low ANXIETY [place] Carbonate 10/17/2015 Low UNKNOWN Penicillins 12/03/2015 Low [...] Taken Blood Pressure 180/85 04/13/2016 1:43 PM BIOINFORMATICS ASSISTANT Pulse 101 04/13/2016 1:43 PM BIOINFORMATICS ASSISTANT Temperature 36.9 C (98.5 F) 12/23/2015 1:05 PM BIOINFORMATICS ASSISTANT Respiratory Rate 20 04/13/2016 1:43 PM BIOINFORMATICS ASSISTANT Height 1.626 m (5' 4") 04/13/2016 1:43 PM BIOINFORMATICS ASSISTANT Weight 121.11 kg (267 lb) 04/13/2016 1:43 PM BIOINFORMATICS ASSISTANT Body Mass Index 45.81 04/13/2016 1:43 PM BIOINFORMATICS ASSISTANT Oxygen Saturation 94% 04/13/2016 1:43 PM BIOINFORMATICS ASSISTANT Plan of Care Health Maintenance Due Date Last Done Comments Hepatitis C Screening 1960 Physical (Comprehensive) 1965 Exam Pertussis Vaccine 1969 Tetanus Vaccine 08/16/1975 Cervical Cancer Screening 08/16/1979 Breast Cancer Screening 1998 Colorectal Cancer 2008 Screening Influenza Vaccine 10/15/2016 Results from Last 3 Months Not on file
[2016-06-13] MEDS ORDERED: KETOROLAC 60mg/2ml INJECTION IM ONE (16:30)
--- OUTSIDE RECORDS SUMMARY | 2016-06-13 16:32 | XMS REPORT | Continuity of Care Document ---
Author Author [facility] Organization [facility] Address Unknown Phone Unavailable Care Team Providers Care Ticket Sales Supervisor Name Role Phone Ilya Felix Primary Care Physician [phone] Source Comments Some departments are not documenting in the electronic medical record. If you do not see the information that you expected, contact Release of Information in the Health Information Management department at [phone] for further assistance in locating additional records.[facility] Active Allergies and Adverse Reactions Allergen Noted Date Severity Reactions Comments Amoxicillin 10/17/2015 Low UNKNOWN Augmentin 07/22/2008 UNKNOWN Haldol 07/22/2008 SEE COMMENTS "causes jaw to lock" Latuda 12/23/2015 Low ANXIETY [place] Carbonate 10/17/2015 Low UNKNOWN Penicillins 12/03/2015 Low [...] Taken Blood Pressure 180/85 04/13/2016 1:43 PM PHARMACOMETRICIAN Pulse 101 04/13/2016 1:43 PM PHARMACOMETRICIAN Temperature 36.9 C (98.5 F) 12/23/2015 1:05 PM PHARMACOMETRICIAN Respiratory Rate 20 04/13/2016 1:43 PM PHARMACOMETRICIAN Height 1.626 m (5' 4") 04/13/2016 1:43 PM PHARMACOMETRICIAN Weight 121.11 kg (267 lb) 04/13/2016 1:43 PM PHARMACOMETRICIAN Body Mass Index 45.81 04/13/2016 1:43 PM PHARMACOMETRICIAN Oxygen Saturation 94% 04/13/2016 1:43 PM PHARMACOMETRICIAN Plan of Care Health Maintenance Due Date Last Done Comments Hepatitis C Screening 1958 Physical (Comprehensive) 1965 Exam Pertussis Vaccine 1969 Tetanus Vaccine 08/16/1975 Cervical Cancer Screening 08/16/1979 Breast Cancer Screening 1998 Colorectal Cancer 2008 Screening Influenza Vaccine 10/15/2016 Results from Last 3 Months Not on file
--- NOTE | 2016-06-13 16:40 | ERPDOC ---
Departure Disposition Decision Date: Jun 13, 2016 Disposition Decision Time: 17:00 Disposition: 01 DISCHARGED HOME, SELF-CARE Impression Impression: 1) PES PLANUS 2) BILATERAL FOOT PAIN DUE TO PES PLANUS Impression: Primary Impression: Pes planus of both feet Additional Impression: Bilateral foot pain Condition: Stable Seen By: Physician only Referrals: Rad DOW MD (PCP) 1 Day FOLLOW UP IN NEXT 1-2 DAYS Patient Instructions: Flatfoot (GEN), Foot Care for People with Diabetes (ED) Problems/Meds/Labs Reviewed?: Yes Medications reviewed and manag: Yes Additional Instructions: 1) MAY CONTINUE TO UTILIZE FOOT BRACES DIRECTED 2) MAY TAKE [place] 5/325 ONE OR TWO EVERY 6 HOURS NEEDED FOR PAIN 3) FOLLOW UP WITH DR. DOW IN NEXT 1-2 DAYS FOR FURTHER EVALUATION AND TREATMENT OF FOOT PAIN Follow up care ordered?: Yes Mental Status: Alert, Oriented Scripts Hydrocodone/Acetaminophen ([place] 5-325 Tablet) 5-325 Tablet 1-2 TAB PO Q6H for PAIN, #15 TAB 0 Refills Prov: ARLENE HENDRICKSON MD 06/13/16 HPI - Lower Extremity General Chief Complaint: Lower Extremity Pain Stated Complaint: WEAKNESS, ANKLE PAIN Time Seen by Provider: 16:18 Source: patient HPI - Lower Extremity Initial Comments 55 YO WF who presents to ER for bilateral foot and ankle pain. Patient reports that the pain today got worse around 1000 this morning. Patient is out of her pain medication. She has "fallen arches" but claims she doesn't know the term "neuropathy." She denies known injury. This is the patient's 6th ER visit in the month of May. She has not followed up with Dr. Waldemar Dow, her PCP, in the interim. According to the medical record, patient was evaluated in the ER on 06/11/16. She states this was for "bladder problems" and received a prescription for [place] 5/325 (#15) which apparently she has already taken. Patient reports that she hasn't had pain "to this extent" in her feet "for a long time," yet she is wearing foot and ankle braces that she states "are for fallen arches." Occurred At: home Pain/Severity Scale: Now: 10/10 Pain/Injury Location: bilateral foot, bilateral ankle 1 - Pain in bilateral feel and ankles. Method of Injury: unknown Quality: aching, sharpness Allergies: Coded Allergies: Penicillins (Verified Allergy, Unknown, 06/11/16) amoxicillin (Verified Allergy, Unknown, 06/11/16) clavulanic acid (Verified Allergy, Unknown, 06/11/16) grapefruit (Verified Allergy, Unknown, 06/11/16) haloperidol (Verified Allergy, Unknown, 06/11/16) ciprofloxacin (Verified Adverse Reaction, Unknown, STOMACH ACHE, 06/11/16) Uncoded Allergies: POTASSIUM CLAVULANATE (Allergy, Unknown, 05/27/16) Past History Patient Surgical History L Breast surgery, hysterectomy, bunion Past Medical History Metabolic: diabetes GI: GERD Female: renal insufficiency Psychological: anxiety, depression, psychosis Surgical History Reproductive/: hysterectomy Joint: foot Family History Family PMH: FOUND: diabetes Social History Second Hand Exposure: Yes Substance Use Type: does not use Alcohol Intake: none Household Members: significant other Review of Systems Constitutional Constitutional: DENIES: appetite decrease, chills, dizziness, fever, syncope, weakness Eyes General: DENIES: erythema, exudate, photophobia Vision: DENIES: blurring ENMT Sinuses: DENIES: congestion Nose: DENIES: nosebleeds Mouth/Throat: DENIES: painful swallowing, scratchy throat, sore throat Cardiovascular Cardiac: DENIES: chest pain, dyspnea on exertion Rhythm/Rate: DENIES: irregular beat, palpitations Pulmonary Respiratory: DENIES: cough, dyspnea, sputum GI Upper Abdomen: DENIES: hematemesis, nausea, vomiting Lower Abdomen: DENIES: blood in stool, constipation, diarrhea, melena General: dysuria (chronic) Integumentary Skin: DENIES: rash Neurological General: DENIES: dysarthria, headache, seizures, syncope Physical Exam General General Nourishment: obese Vitals and Pain Weight: Kilograms: 119.400 Height (feet): 5 Height (inches): 4.00 Triage Pain Scale: RN VS reviewed by Provider: Yes Normal Exams: Head: Normocephalic w/o trauma Eyes: Pupils are PERRLA w/ EOMI, No scleral icterus ENMT: No facial trauma, nasal exudates, pharyngeal erythema Neck: Full range of motion, without adenopathy, JVD Chest/Resp: Clear all goins, with good airflow, and symmetry bilaterally CV: Regular rate and rhythm, without murmur or gallop, Pulses 2+ all extremities, capillary refill, <2 seconds all ext. Abdomen: Bowel sounds positive, soft, non-tender, non-distended, no hepatosplenomegaly Integumentary: No rashes, hives, or bruising noted Neurologic: Patient is alert, cranial nerves, motor/sensory/cerebellar, exams w /o gross deficits Psychiatric: Patient exhibits, appropriate attention, emotion and affect Musculoskeletal Extremity : Side: Bilateral Extremity: foot Extremity Findings: FOUND: pain, NOT FOUND: discoloration, laceration, swelling Comments pes planus bilaterally. large callus noted on right instep. diffusely tender to palpation. no areas of localized tenderness or swelling. no ecchymosis or discoloration. no ulcers or wounds noted. Differential Diagnoses Considering: Fracture, Plantar Fasciitis, Strain, Other (Neuropathy; pain due to pes planus) Progress Results/Orders Orders Procedure Category Date Status Time Ketorolac (Toradol) PHA 06/13/16 Complete 16:30 Foot Bilateral 3 View RAD 06/13/16 Resulted 16:33 Medications Current ED Medications Ketorolac Tromethamine (Toradol) 60 mg O ONCE IM Last administered on t 16:53; Start 06/13/16 at 16:30; Stop 06/13/16 at 16:34; Status DC Xray Xray #1: Xray: Foot L (No acute fracture. Degenerative changes and pes planus noted.) Interpretation: Interpreted by Xray #2: Xray: Foot R (No acute fracture. Degenerative changes and pes planus noted.) Interpretation: Interpreted by ARLENE Ramos MD Jun 13, 2016 16:40
[2016-06-13 16:57] VITALS: TEMP 99.6
[2016-06-13] MEDS ORDERED: HYDR-4246 PO (17:04)
[2016-06-13 17:22] VITALS: BP 120/84; PULSE 106; RESP 18; O2SAT 94
--- NOTE | 2016-06-13 21:14 | DI ---
Indication: ITS.REASON: BILATERAL FOOT PAIN PROCEDURE: FOOT BILATERAL 3 VIEW: Encounter: Initial Comparison: None Findings: Right foot: No acute fracture or dislocation. Prior bunionectomy procedure. Degenerative change at the first metatarsophalangeal joint. Bony demineralization. Probable old deformity of the fifth metatarsal neck. Left foot: No acute fracture. Prior osteotomy in the first metatarsal. Bony demineralization. Degenerative change in the tibiotalar joint. Impression: Right foot: No acute fracture. Left foot: No acute fracture. .
== END 2016-06-13 17:22 | disposition home or self-care (01) ==
LOC: ED 16:07
DX: M21.42 Flat foot [pes planus] (acquired), left foot (principal); M21.41 Flat foot [pes planus] (acquired), right foot; M79.672 Pain in left foot; M79.671 Pain in right foot
CPT/HCPCS: 73630; 96372; 99283; J1885

== ENCOUNTER → 2016-06-16 | Outpatient (CLI) | payer BC, MEDICAID ==
--- NOTE | 2016-06-16 10:52 | DI ---
Indication: ITS.REASON: Z87.440 Personal history of urinary (tract) infections PROCEDURE: US RENAL: Encounter: Initial Comparison: Renal CT dated May 21, 2016 Technique: Grayscale and color Doppler sonographic imaging of both kidneys and bladder was performed. FINDINGS: Both kidneys are present with normal cortical thickness and echogenicity. Mild bilateral hydronephrosis. No renal stones or renal masses. The right kidney measures 11.4 cm in length, and the left kidney measures 11.7 cm in length. Bladder appears distended but otherwise normal without focal debris or mass. Right ureteral jet was visible. Prevoid bladder volume was 855.3 mL. Post void residual volume of 176.7 mL. IMPRESSION: Mild bilateral hydronephrosis. .
[2016-06-16 11:07] LABS: BLOOD, URINE NEGATIVE (NEGATIVE); COLOR,URINE YELLOW (YELLOW); LEUKOCYTE ESTERASE ,URINE NEGATIVE (NEGATIVE); NITRITE,URINE NEGATIVE (NEGATIVE); UROBILINOGEN,URINE 0.2 EU/DL (NORMAL)
== END ==
LOC: IMA 09:52
PROVIDERS: ATTEND Urology
DX: N13.30 Unspecified hydronephrosis (principal); Z87.440 Personal history of urinary (tract) infections
CPT/HCPCS: 81003

== ENCOUNTER 2016-07-05 13:41 | Emergency (ER) | payer BC, MEDICAID ==
[~2016-07-05] VITALS: Ht 162.6 cm; Wt 117.3 kg
--- OUTSIDE RECORDS SUMMARY | 2016-07-05 13:48 | XMS REPORT | Continuity of Care Document ---
Author Author [facility] Organization [facility] Address Unknown Phone Unavailable Care Team Providers Care Grain Operations Manager Name Role Phone Ilya Felix Primary Care Physician [phone] Source Comments Some departments are not documenting in the electronic medical record. If you do not see the information that you expected, contact Release of Information in the Health Information Management department at [phone] for further assistance in locating additional records.[facility] Active Allergies and Adverse Reactions Allergen Noted Date Severity Reactions Comments Amoxicillin 10/17/2015 Low UNKNOWN Augmentin 07/22/2008 UNKNOWN Haldol 07/22/2008 SEE COMMENTS "causes jaw to lock" Latuda 12/23/2015 Low ANXIETY [place] Carbonate 10/17/2015 Low UNKNOWN Penicillins 12/03/2015 Low [...] Taken Blood Pressure 180/85 04/13/2016 1:43 PM LEARNING AND DEVELOPMENT OFFICER Pulse 101 04/13/2016 1:43 PM LEARNING AND DEVELOPMENT OFFICER Temperature 36.9 C (98.5 F) 12/23/2015 1:05 PM LEARNING AND DEVELOPMENT OFFICER Respiratory Rate 20 04/13/2016 1:43 PM LEARNING AND DEVELOPMENT OFFICER Height 1.626 m (5' 4") 04/13/2016 1:43 PM LEARNING AND DEVELOPMENT OFFICER Weight 121.11 kg (267 lb) 04/13/2016 1:43 PM LEARNING AND DEVELOPMENT OFFICER Body Mass Index 45.81 04/13/2016 1:43 PM LEARNING AND DEVELOPMENT OFFICER Oxygen Saturation 94% 04/13/2016 1:43 PM LEARNING AND DEVELOPMENT OFFICER Plan of Care Health Maintenance Due Date Last Done Comments Hepatitis C Screening 1960 Physical (Comprehensive) 1965 Exam Pertussis Vaccine 1969 Tetanus Vaccine 08/16/1975 Cervical Cancer Screening 08/16/1979 Breast Cancer Screening 1998 Colorectal Cancer 2008 Screening Influenza Vaccine 10/15/2016 Results from Last 3 Months Not on file
[2016-07-05 13:50] VITALS: TEMP 98; Ht 162.6 cm; Wt 117.3 kg
--- OUTSIDE RECORDS SUMMARY | 2016-07-05 14:03 | XMS REPORT | Continuity of Care Document ---
Author Author [facility] Organization [facility] Address Unknown Phone Unavailable Care Team Providers Care Cutting Machine Operator Name Role Phone Ilya Felix Primary Care Physician [phone] Source Comments Some departments are not documenting in the electronic medical record. If you do not see the information that you expected, contact Release of Information in the Health Information Management department at [phone] for further assistance in locating additional records.[facility] Active Allergies and Adverse Reactions Allergen Noted Date Severity Reactions Comments Amoxicillin 10/17/2015 Low UNKNOWN Augmentin 07/22/2008 UNKNOWN Haldol 07/22/2008 SEE COMMENTS "causes jaw to lock" Latuda 12/23/2015 Low ANXIETY [place] Carbonate 10/17/2015 Low UNKNOWN Penicillins 12/03/2015 Low [...] Taken Blood Pressure 180/85 04/13/2016 1:43 PM COLLECT ON DELIVERY CLERK Pulse 101 04/13/2016 1:43 PM COLLECT ON DELIVERY CLERK Temperature 36.9 C (98.5 F) 12/23/2015 1:05 PM COLLECT ON DELIVERY CLERK Respiratory Rate 20 04/13/2016 1:43 PM COLLECT ON DELIVERY CLERK Height 1.626 m (5' 4") 04/13/2016 1:43 PM COLLECT ON DELIVERY CLERK Weight 121.11 kg (267 lb) 04/13/2016 1:43 PM COLLECT ON DELIVERY CLERK Body Mass Index 45.81 04/13/2016 1:43 PM COLLECT ON DELIVERY CLERK Oxygen Saturation 94% 04/13/2016 1:43 PM COLLECT ON DELIVERY CLERK Plan of Care Health Maintenance Due Date Last Done Comments Hepatitis C Screening 1960 Physical (Comprehensive) 1965 Exam Pertussis Vaccine 1969 Tetanus Vaccine 08/16/1975 Cervical Cancer Screening 08/16/1979 Breast Cancer Screening 1998 Colorectal Cancer 2008 Screening Influenza Vaccine 10/15/2016 Results from Last 3 Months Not on file
[2016-07-05] MEDS ORDERED: ACET-62 PO (14:20)
[2016-07-05] MEDS ORDERED: [UNRECOGNIZED DRUG - CODE] PO (14:27)
[2016-07-05] MEDS ORDERED: [UNRECOGNIZED DRUG - CODE] PO (14:27)
[2016-07-05] MEDS ORDERED: POLY119P3 PO (14:27)
[2016-07-05] MEDS ORDERED: NORMAL SALINE 500 ML IV ONE (14:30)
--- NOTE | 2016-07-05 14:47 | ERPDOC ---
Departure Disposition Decision Date: July 05, 2016 Disposition Decision Time: 16:11 Disposition: 01 DISCHARGED HOME, SELF-CARE Impression Impression Impression: Primary Impression: Light-headed feeling Severity: Moderate Condition: Improved Seen By: Physician only Referrals: Rad DOW MD (PCP) 2 Days Patient Instructions: Lightheadedness (ED) Problems/Meds/Labs Reviewed?: Yes Medications reviewed and manag: Yes Follow up care ordered?: Yes Mental Status: Alert, Oriented Scripts Sulfamethoxazole/Trimethoprim (Bactrim Ds Tablet) 1 Each Tablet 1 TAB PO BID for 10 Days, #20 TAB 0 Refills Prov: IDA VILLAVICENCIO DO 07/05/16 HPI - General Medical General Chief Complaint: General Stated Complaint: GENERAL MALAISE Time Seen by Provider: 13:50 Source: patient Exam Limitations: no limitations HPI - General Medical Initial Comments 55-year-old female presents to the emergency department with a chief complaint of feeling slightly lightheaded earlier this morning at approximately 09:00. Patient's symptoms were fleeting. They have resolved. She denies any pain or discomfort. No other complaints or associated symptoms. Patient states she has not been drinking as much water as she typically does on a daily basis. Patient states that she felt fine after sitting down to rest. There is no blood in the patient's stool. Occurred At: home Onset: other (Resolved. ) Allergies: Coded Allergies: Penicillins (Verified Allergy, Unknown, 06/11/16) amoxicillin (Verified Allergy, Unknown, 06/11/16) clavulanic acid (Verified Allergy, Unknown, 06/11/16) grapefruit (Verified Allergy, Unknown, 06/11/16) haloperidol (Verified Allergy, Unknown, 06/11/16) ciprofloxacin (Verified Adverse Reaction, Unknown, STOMACH ACHE, 06/11/16) Uncoded Allergies: POTASSIUM CLAVULANATE (Allergy, Unknown, 05/27/16) Past History Patient Surgical History L Breast surgery, hysterectomy, bunion Past Medical History Metabolic: diabetes GI: GERD Female: renal insufficiency Psychological: anxiety, depression, psychosis Family History Family PMH: FOUND: diabetes Social History Smoking Status: Never smoker Second Hand Exposure: Yes Substance Use Type: does not use Alcohol Intake: none Household Members: significant other Review of Systems Constitutional Constitutional: DENIES: chills, fever Eyes General: DENIES: erythema, exudate Lids/Accessories: DENIES: erythema, swelling Vision: DENIES: acuity, blurring ENMT Ears: DENIES: drainage, erythema Hearing: DENIES: hearing loss Balance: DENIES: ataxia, falling to one side Sinuses: DENIES: congestion, pain Nose: DENIES: nosebleeds, pain Mouth/Throat: DENIES: painful swallowing, sore throat Teeth: DENIES: pain Jaw: DENIES: pain Cardiovascular Cardiac: DENIES: chest pain, dyspnea on exertion Rhythm/Rate: DENIES: irregular beat, palpitations Vascular: DENIES: pedal edema, unilateral swelling Pulmonary Respiratory: DENIES: cough, dyspnea, pleuritic chest pain, sputum GI Upper Abdomen: DENIES: nausea, pain, vomiting Lower Abdomen: DENIES: diarrhea, pain General: DENIES: burning, dysuria, frequency, urgency Musculoskeletal General: DENIES: joint pain, tenderness Integumentary Skin: DENIES: itching, rash Neurological General: DENIES: change in strength, headache, numbness, weakness Psychiatric Psychiatric: DENIES: emotional instability, suicidal ideation/attempt Endocrine Endocrine: DENIES: polydipsia, polyphagia Hematologic/Lymphatic Hematologic/Lymphatic: DENIES: frequent nosebleeds, lymphadenopathy Allergic/Immunological Allergic/Immunoligical: DENIES: allergic reactions, hives Physical Exam General General Nourishment: well nourished, well developed, appears stated age, no acute distress, adult General Body Habitus: well groomed Vitals and Pain First Documented Vital Signs Date Time Temp Pulse Resp B/P Pulse Ox O2 Delivery O2 Flow Rate FiO2 07/05/16 16:34 106 134/78 94 Room Air Weight: Kilograms: Height (feet): 5 Height (inches): 4.00 Triage Pain Scale: RN VS reviewed by Provider: Yes Normal Exams: Head: Normocephalic w/o trauma Eyes: Pupils are PERRLA w/ EOMI, No scleral icterus, irritation, or foreign bodies noted ENMT: No facial trauma, nasal exudates, pharyngeal erythema, or exudates are noted Dental: No fractured, loose, or missing teeth noted Neck: Full range of motion, without adenopathy, JVD, bruits or thyromegaly Chest/Resp: Clear all goins, with good airflow, and symmetry bilaterally CV: Regular rate and rhythm, without murmur or gallop, Pulses 2+ all extremities, capillary refill, <2 seconds all ext., no pedal edema noted Abdomen: Bowel sounds positive, soft, non-tender, non-distended, no hepatosplenomegaly, masses or bruits noted Lymphatic: No lymphadenopathy, or lymphedema noted Musculoskeletal: No tenderness, or deformity noted, good range of motion, all extremities Integumentary: No rashes, hives, or bruising noted, hair and nails, without abnormality Neurologic: Patient is alert, and oriented, cranial nerves, motor/sensory/ cerebellar, exams w/o gross deficits, to observation Psychiatric: Patient exhibits, appropriate attention, emotion and affect Abdomen (brief) Comments NO CVAT. Differential Diagnoses Considering: Medication Effect, Metabolic, UTI, Other (Dehydration) Progress Results/Orders Orders Procedure Category Date Status Time Cbc W/Auto LAB 07/05/16 Complete Diff-Reflex Manual Cmp - Comprehensive LAB 07/05/16 Complete Metabolic Troponin I W LAB 07/05/16 Complete Hemolysis Index Chest 1 View RAD 07/05/16 Resulted 14:20 EKG EKG 07/05/16 Logged Normal Saline (Ns) PHA 07/05/16 Complete 14:30 UA, LAB 07/05/16 Complete Dip&Micro(Complete) & 15:50 Sulfamethoxazole/Trimethoprim PHA 07/05/16 Complete (Bactrim D 16:15 Lab Results Laboratory Tests Test 07/05/16 14:07 07/05/16 14:54 07/05/16 15:50 Glucometer 90mg/dL White Blood Count 8.0T/MM3 Red Blood Count 4.75M/MM3 Hemoglobin 12.7GM/DL Hematocrit 38.1% Mean Corpuscular Volume 80.2UM3 Mean Corpuscular Hemoglobin 26.7UUG Mean Corpuscular Hemoglobin Concent 33.3GM/DL RDW Standard Deviation 43.8FL Platelet Count 223T/MM3 Mean Platelet Volume 10.3UM3 Immature Granulocyte % (Auto) 0.1% Neutrophils (%) (Auto) 50.2% Lymphocytes (%) (Auto) 35.7% Monocytes (%) (Auto) 11.3% Eosinophils (%) (Auto) 2.3% Basophils (%) (Auto) 0.4% Absolute Immature Granulocyte (auto 0.01T/MM3 Absolute Neutrophils (auto) 4.0T/MM3 Absolute Lymphocytes (auto) 2.8T/MM3 Absolute Monocytes (auto) 0.9T/MM3 Absolute Eosinophils (auto) 0.2T/MM3 Absolute Basophils (auto) 0.0T/MM3 Turbidity < 20 Sodium Level 147MEQ/L Potassium Level 3.9MEQ/L Chloride Level 109MEQ/L Carbon Dioxide Level 26MEQ/L Anion Gap 12MEQ/L Blood Urea Nitrogen 23.0MG/DL Creatinine 0.9MG/DL Glomerular Filtration Rate Calc 65 BUN/Creatinine Ratio 26RATIO Glucose Level 79MG/DL Calculated Osmolality 285MOSM/KG Calcium Level 9.7MG/DL Total Bilirubin 0.30MG/DL Icterus Index < 2 Aspartate Amino Transf (AST/SGOT) 20U/L Alanine Aminotransferase (ALT/SGPT) 36U/L Alkaline Phosphatase 80U/L Troponin I < 0.012ng/ml Total Protein 6.6G/DL Albumin 3.9G/DL Globulin 2.7G/DL Albumin/Globulin Ratio 1.4RATIO Chemistry Specimen Hemolysis < 15 Urine Collection Type Cleancatch-midstream Urine Color Yellow Urine Turbidity Clear Urine pH 5.0 Urine Specific [place] 1.010 Urine Protein Negative Urine Glucose (UA) Negative Urine Ketones Negative Urine Blood Negative Urine Nitrite Negative Urine Bilirubin Negative Urine Urobilinogen 0.2EU/DL Urine Leukocyte Esterase 3+ Urine RBC None seen/HPF Urine WBC 5-10/HPF Urine WBC Clumps Few Urine Squamous Epithelial Cells None seen Urine Bacteria None seen Urine Culture Indicated Cult not indicated Medications Current ED Medications Sodium Chloride (NS) 500 ml @ 999 mls/hr Q31M ONCE IV Last administered on t 15:06; Start 07/05/16 at 14:30; Stop 07/05/16 at 15:00; Status DC Trimethoprim/ Sulfamethoxazole (Bactrim Ds) 1 tab ONE TIME PO ; Start 07/05/16 at 16:15; Stop 07/05/16 at 16:46; Status DC Progress Progress Labs / imaging were discussed in detail with the patient and questions are answered. Patient is given IV hydration. Patient remains asymptomatic in the emergency Department. Patient is was provided with a prescription for Bactrim DS which she declines. Patient states that she is only comfortable taking Macrobid. She is given Macrobid 100 mg by mouth twice a day 7 days. Patient is discharged home in improved condition. She is in agreement with the current plan of management. She is to follow up as instructed. She is to return to the emergency Department if her condition worsens or changes in any manner. Prescription for Macrobid was handwritten due to the patient's refusal of the Bactrim. Patient was afebrile at 98.2 deg. F. She was breathing 18 times per minute. Heart rate was 92 bpm at time of discharge. EKG EKG : Rate: 60-100 Rhythm: sinus Sutter: normal Intervals: normal ST/T: normal Interpreted by: signing physician EKG Comments Similar to prior ekg from 05/21/16. Xray Xray : Xray: CXR Portable Interpretation: Normal, Reviewed Written Report IDA VILLAVICENCIO DO July 05, 2016 14:47
--- NOTE | 2016-07-05 14:55 | DI ---
Indication: ITS.REASON: light headed CHEST 1 VIEW: Comparison: 06/26/2016 Technique: Single AP portable upright chest Findings: Patient shows normal heart, mediastinum and central vascularity. Slightly increased markings are seen in the left lung base which could represent some atelectasis. Stable subtle right mid rib deformity is unchanged. Impression: Minimal probable basilar atelectatic changes on the left with no acute new findings appreciated. .
[2016-07-05 15:13] LABS: BASOPHILS % (AUTO) 0.4 % (0-2); EOSINOPHILS # (AUTO) 0.2 T/MM3 (0-0.5); EOSINOPHILS % (AUTO) 2.3 % (0-4); HCT - HEMATOCRIT 38.1 % (36-46); HGB - HEMOGLOBIN 12.7 GM/DL (12-16); IMMATURE GRANULOCYTE # (AUTO) 0.01 T/MM3 (0.00-0.03); IMMATURE GRANULOCYTE % (AUTO) 0.1 % (0.0-0.5); LYMPHOCYTES # (AUTO) 2.8 T/MM3 (1-4.8); LYMPHOCYTES % (AUTO) 35.7 % (23-45); MEAN CORPUSCULAR HGB 26.7 UUG (26-34); MEAN CORPUSCULAR HGB CONC(MCHC 33.3 GM/DL (31-37); MEAN CORPUSCULAR VOLUME 80.2 UM3 (80-100); MEAN PLATELET VOLUME 10.3 UM3 (9.4-12.4); MONOCYTES # (AUTO) 0.9 T/MM3 (0-0.8); MONOCYTES % (AUTO) 11.3 % (0-9.0); NEUTROPHILS % (AUTO) 50.2 % (33-66); RED BLOOD COUNT 4.75 M/MM3 (4.00-5.20)
[2016-07-05 15:23] LABS: ALBUMIN 3.9 G/DL (3.5-5.0); ALBUMIN/GLOBULIN RATIO 1.4 RATIO (1.1-2.2); ALKALINE PHOSPHATASE 80 U/L (38-126); ALT (SGPT) 36 U/L (9-52); ANION GAP 12 MEQ/L (5-15); AST (SGOT) 20 U/L (14-36); BUN/CREATININE RATIO 26 RATIO (6-26); CALCIUM 9.7 MG/DL (8.4-10.2); CHLORIDE 109 MEQ/L (98-107); CO2 - CARBON DIOXIDE 26 MEQ/L (22-30); CREATININE 0.9 MG/DL (0.7-1.2); GLOMERULAR FILTRATION RATE 65; GLUCOSE 79 MG/DL (65-110); POTASSIUM 3.9 MEQ/L (3.6-5); SODIUM 147 MEQ/L (134-144); TOTAL PROTEIN 6.6 G/DL (6.3-8.2)
[2016-07-05 15:45] VITALS: RESP 21
[2016-07-05 15:56] LABS: BLOOD, URINE NEGATIVE (NEGATIVE); COLOR,URINE YELLOW (YELLOW); LEUKOCYTE ESTERASE ,URINE 3+ (NEGATIVE); NITRITE,URINE NEGATIVE (NEGATIVE); UROBILINOGEN,URINE 0.2 EU/DL (NORMAL)
[2016-07-05 16:06] LABS: BACTERIA,URINE NONE SEEN (NEGATIVE); RBC,URINE NONE SEEN /HPF (0-3); SQUAMOUS EPITHELIAL CELL,UR NONE SEEN; WBC CLUMPS,URINE FEW
[2016-07-05] MEDS ORDERED: SULF1TAB42 PO (16:12)
[2016-07-05] MEDS ORDERED: SULFAMETHOXAZOLE/TMP 800mg/160mg TABLET PO SCH (16:15)
[2016-07-05 16:34] VITALS: BP 134/78; PULSE 106; O2SAT 94
== END 2016-07-05 16:34 | disposition home or self-care (01) ==
LOC: ED 13:41
DX: R53.81 Other malaise (principal); R42 Dizziness and giddiness; E11.9 Type 2 diabetes mellitus without complications
CPT/HCPCS: 36415; 80053; 81001; 82948; 84484; 85025; 93005